=== PATIENT | female | born 1935 | race Caucasian/White ===

== ENCOUNTER 2024-03-15 16:30 | Emergency (ER) | payer OTHER, SELFPAY ==
[2024-03-15 16:39] VITALS: BP 128/60
[2024-03-15 17:00] VITALS: BP 118/48
[2024-03-15 17:06] LABS: % Basophils 0.2 % (0-2); % Eosinophils 1.1 % (0-6); % Immature Granulocytes 0.7 % (0-0.5); % Lymphocytes 28.8 % (20.5-51.1); % Monocytes 8.4 % (1.7-9.3); % Neutrophils 60.8 % (42.2-75.2); Absolute Eosinophils 0.1 10^3/uL (0-0.7); Absolute Lymphocytes 1.6 10^3/uL (1.2-3.4); Absolute Monocytes 0.5 10^3/uL (0.1-0.6); Absolute Neutrophils 3.3 10^3/uL (1.4-6.5); Hemoglobin 9.6 g/dL (12.0-16.0); Mean Corp Hgb Conc. 33.1 g/dL (33.0-37.0); Mean Corpuscular Hgb 29.8 pg (27.0-31.0); Mean Corpuscular Volume 90.1 fL (81.0-99.0); Mean Platelet Volume 9.3 fL (7.4-10.4); Nucleated Red Blood Cells % 0 %; Platelet Count 214 10^3/uL (130-400); Red Blood Cell Count 3.22 10^6/uL (4.20-5.40); Red Cell Dist. Width 13.8 % (11.5-14.5); White Blood Cell Count 5.5 10^3/uL (4.8-10.8)
[2024-03-15 17:21] LABS: ALT (SGPT) 14 U/L (0-35); AST (SGOT) 21 U/L (14-36); Albumin 3.9 g/dl (3.5-5.0); Alkaline Phosphatase 62 U/L (38-126); Blood Urea Nitrogen 28 mg/dl (7-17); Calcium 9.5 mg/dl (8.4-10.2); Carbon Dioxide 20 mmol/L (22-30); Chloride 107 mmol/L (98-107); Glucose 185 mg/dl (70-99); Potassium 4.9 mmol/L (3.5-5.1); Sodium 137 mmol/L (135-145); Total Bilirubin 0.4 mg/dl (0.2-1.3); eGFR 54.19
[2024-03-15 17:33] LABS: Troponin I < 0.012 ng/ml
[2024-03-15 18:00] VITALS: BP 151/57
[2024-03-15 19:08] VITALS: BP 157/55
--- NOTE | 2024-03-15 19:10 | ED.GENMED ---
History of Present Illness
General
Chief Complaint: Fainting Sensation
Source: patient
Exam Limitations: none
Time Seen by Provider: 03/15/24 16:36
Nursing documentation reviewed up to this point in time: agreed with
History of Present Illness
History of Present Illness:
Patient to ED after near syncopal event. According to daughter, patient typically gets OOB around 3PM. SHe took her medication and then went to use bathroom. Daughter states when she came out of bathhroom when she came out of bathroom she was
week. Daughter sat her in a chair and then helped her to floor. No LOC> Patient denies any CP/pressure. Brought to ED via EMS for eval. SHe is now symptom free. Daughters at bedside
Past History
Past History
ED Past Medical History: HTN, Hypercholesterolemia, NIDDM, Psychiatric (anxiety) and Other (TIA)
ED Past Surgical History: Gynecological
Social History
Tobacco: Non-smoker
Alcohol: None
Drug: None
Personal: Single
Living: with family
Review of Systems
Review of Systems
Allergies reviewed?: Yes
All Other Systems: ROS reviewed and negative except as documented in HPI and ROS
Constitutional: Reports no symptoms
EENT: Reports no symptoms
Respiratory: Reports no symptoms
Cardiac: Reports syncope (near syncope)
ABD/GI: Reports no symptoms
: Reports no symptoms
Musculoskeletal: Reports no symptoms
Skin: Reports no symptoms
Neurological: Reports no symptoms
Psychiatric: Reports no symptoms
Phy Exam
General Physical Exam
General Presentation: well appearing and no apparent distress
General age: appears stated age
General Skin: warm and dry
General Habitus: normal
General Mental: alert
Cardiovascular Exam
Cardiovascular Exam: regular rate/rhythm and no edema
Pulmonary Exam
Pulmonary Exam: lungs clear and no respiratory distress
Gastrointestinal Exam
Gastrointestinal Exam: normal bowel sounds, non tender, soft, no organomegaly and non distended
Musculoskeletal Exam
Musculoskeletal Exam: full ROM and neuro vasc intact
Skin Exam
Skin Exam: normal color, warm/dry and no rash
Psychiatric Exam
Psychiatric Exam: normal mood/affect
Course
Orders/Labs/Results
Orders:
Orders
03/15/24 16:34
Electrocardiogram (*1) Urgent
Reason for Study: Syncope
EKG- Treatment ONCE
03/15/24 16:41
CMP [Comprehensive Metabolic Panel] Urgent
Complete Blood Count/With Diff Urgent
Troponin I Urgent
03/15/24 17:33
CT Head W/o Iv Contrast Urgent
Comment:
Reason For Exam: near syncope
03/15/24 19:08
Urinalysis Reflex To Culture Urgent
Date Specimen was Collected: 03/15/24
Time Specimen was Collected: 19:07
Abnormal Lab Results
03/15/24 03/15/24
16:41 19:08
RBC 3.22 L 10^6/uL
(4.20-5.40)
Hgb 9.6 L g/dL
(12.0-16.0)
Hct 29.0 L %
(37.0-47.0)
Immature Gran % 0.7 H %
(0-0.5)
Carbon Dioxide 20 L mmol/L
(22-30)
BUN 28 H mg/dl
(7-17)
Glucose 185 H mg/dl
(70-99)
Total Protein 6.0 L g/dl
(6.3-8.2)
Urine Glucose 3+ A
(Negative)
03/15/24 16:41
03/15/24 16:41
Vital Signs
Initial and Last Documented VS:
Initial Vital Signs
Temp
98.2 F
03/15/24 16:33
Last Documented Vital Signs
Temp Pulse Resp BP Pulse Ox
98.2 F 64 18 157/55 98
03/15/24 16:33 03/15/24 19:08 03/15/24 19:08 03/15/24 19:08 03/15/24 19:08
*Radiology
Radiology exam reviewed: radiology read reviewed
*Pulse Oximetry
Patient hypoxic: no
*Critical Care Note
Total Time (30-74mins, 75-104mins- exclusive of procedures): Not Applicable
Update Note
Update Note:
Near syncopal event after BM today. No head injury. LAbs reviewed, CT stable. WIll discyharge home with family. Given instructions on s/s to return to ED and she is agreeable to plan.
ED Attending Note
-
Portions of this chart may have been created with voice recognition software.� Occasional wrong word or��sound alike� substitutions may have occurred due to the inherent limitations of voice recognition software.
Discharge Plan
Departure
Patient Disposition: Home (Routine Discharge)
Date of Disposition: 03/15/24
Time of Disposition: 19:40
Patient with high blood pressure during this ER visit?: No
Condition: Good
Covid-19: Not Applicable
Discharge Problem:
Near syncope
Instructions: Vasovagal Response (DC), Near Fainting (DC)
Prescriptions:
No Action
coenzyme Q10 60 MG capsule
1 mg PO DAILY
Patient Comments:
takes unknown amount on friday, , and friday
lorazepam 0.5 MG tablet
0.5 mg PO PRN PRN (Reason: insomnia )
amlodipine 10 MG tablet
10 mg PO DAILY
labetalol 100 MG tablet
200 mg PO BID
sertraline 50 MG tablet
50 mg PO DAILY
cholecalciferol (vitamin D3) [D3 DOTS] 2,000 UNIT tablet
2,000 unit PO BID
Jardiance 10 MG tablet
10 mg PO DAILY
clopidogrel 75 MG tablet
75 mg PO DAILY Qty: 30 0RF
rosuvastatin 20 MG tablet
20 mg PO QPM Qty: 30 0RF
metformin 500 MG tablet
500 mg PO BID Qty: 60 0RF
irbesartan 150 MG tablet
150 mg PO BID
Referrals:
Jenna Underwood DO [Family Provider] - Tomorrow
Activity Restrictions/Additional Instructions:
Return to the emergency department immediately for any changes in/worsening of your symptoms.
Interventions
Interventions:
*Risk Screen - Suicide Last Done: 03/15/24 16:36
*General Assessment Last Done: 03/15/24 16:36
*Neglect/Abuse Screening Last Done: 03/15/24 16:36
ED- Fall Risk Assessment Last Done: 03/15/24 16:39
ED- Cardiac Assessment Last Done: 03/15/24 16:39
ED- Neurological Assessment Last Done: 03/15/24 16:39
Discharge Date and Time
Print Language: FRENCH
[2024-03-15 19:32] LABS: Urine Albumin Negative (Neg - Trace); Urine Bilirubin Negative (Negative); Urine Character Clear (Clear); Urine Color Yellow; Urine Glucose 3+ (Negative); Urine Ketone Negative (Negative); Urine Leukocyte Negative (Negative); Urine Nitrite Negative (Negative); Urine Occult Blood Negative (Negative); Urine Urobilinogen Negative (Neg - 1+)
== END 2024-03-15 19:50 | disposition home or self-care (01) ==
LOC: EMR 16:30
PROVIDERS: Nurse Practitioner; EMERGENCY PHYSICIAN Student in an Organized Health Care Education/Training Program; FAMILY PHYSICIAN Family Medicine
DX: R55 Syncope and collapse (principal); I10 Essential (primary) hypertension; E11.9 Type 2 diabetes mellitus without complications; E78.00 Pure hypercholesterolemia, unspecified; F41.9 Anxiety disorder, unspecified; Z86.73 Personal history of transient ischemic attack (TIA), and cerebral infarction without residual deficits; Z79.84 Long term (current) use of oral hypoglycemic drugs; Z88.2 Allergy status to sulfonamides
CPT/HCPCS: 99284; 70450; 80053; 81003; 84484; 85025; 93005

== ENCOUNTER 2024-03-26 21:09 | Inpatient (IN) | payer OTHER, SELFPAY ==
[2024-03-26] VITALS (17 sets, daily range): BP systolic 107–157; BP diastolic 40–69; PULSE 63–83; BMI 25.0; BMI 24.0
--- NOTE | 2024-03-26 17:29 | ED.GENMED ---
History of Present Illness
<Irasema Russ PA-C - Last Filed: 03/27/24 00:13>
General
Chief Complaint: Blood Pressure Problem
Source: patient and family (Daughter at bedside)
Exam Limitations: none
Time Seen by Provider: 03/26/24 17:14
Nursing documentation reviewed up to this point in time: agreed with
History of Present Illness
History of Present Illness:
Patient is an 88-year-old female presenting to the emergency department with daughter for concerns of asymptomatic low blood pressure readings at home. Patient's daughter reports regular checking of blood pressure at home in the afternoon. Today
they are checking blood pressure he was found to be in the 90s/40s�50s. They spoke with the primary care provider who recommended patient be seen in the emergency department. Patient was asymptomatic at the time of low blood pressure readings.
Patient specifically denies any fever, chills, dizziness/lightheadedness, numbness/tingling, chest pain or shortness of breath. No recent syncopal or near syncopal events since discharge from hospital last week.
Patient's daughter does state that her mom does not stay well-hydrated throughout the day.
Patient was seen in the emergency department for a near syncopal event about a week ago. They were instructed to cut the irbesartan in half which they have done that for the past week. No other recent medication changes.
Patient does have a history of iron deficiency anemia. She takes iron supplements no hematochezia or melena
Past History
<Irasema Russ PA-C - Last Filed: 03/27/24 00:13>
Past History
ED Past Medical History: HTN, Hypercholesterolemia, NIDDM, Psychiatric (anxiety) and Other (TIA)
ED Past Surgical History: Gynecological
Social History
Tobacco: Non-smoker
Alcohol: None
Drug: None
Personal: Single
Living: with family
Review of Systems
<Irasema Russ PA-C - Last Filed: 03/27/24 00:13>
Review of Systems
Allergies reviewed?: Yes
All Other Systems: ROS reviewed and negative except as documented in HPI and ROS
Phy Exam
<Irasema Russ PA-C - Last Filed: 03/27/24 00:13>
Physical Exam
Physical Exam:
Vitals: Patient's vital signs are stable. Normotensive, afebrile
General: Patient is very well appearing, no acute distress. Nontoxic appearing
Skin: Warm and dry, no rashes or lesions
Head: Normocephalic, atraumatic
Eyes: Sclera nonicteric. EOMs intact. No nystagmus.
Throat: Protecting airway
Neck: Normal ROM, no cervical spine tenderness, no meningismus
Cardiac: Regular rate and rhythm, no murmurs.
Pulm: Normal respiratory effort, no wheezes, rales, rhonchi heard on exam.
Abdomen: Abdomen soft and nontender.
Extremities: No evidence of cyanosis or edema. Great distal pulses
Neuro: Grossly intact.
Psychiatric: Normal affect.
Course
<Irasema Russ PA-C - Last Filed: 03/27/24 00:13>
Orders/Labs/Results
Orders:
Orders
03/26/24 Dinner
Regular
At Your Request: Limited Participation
Does patient need a safe tray?: No
03/26/24 17:46
Orthostatic VS- Treatment ONCE
03/26/24 18:30
0.9% Sodium Chloride 1000 ml [Nss] 1,000 ml IV BOLUS
03/26/24 18:45
Complete Blood Count/With Diff Urgent
Comprehensive Metabolic Panel Urgent
03/26/24 19:51
Electrocardiogram (*1) Urgent
Reason for Study: Other
Other Reason for Exam: hyperkalemia
EKG- Treatment ONCE
Potassium Urgent
03/26/24 20:12
Calcium Gluconate 1,000 mg IV NOW STA
Dextrose 50%-Water [Dextrose 50% Syringe] 12.5 grams IV [id number] PRN
Dextrose 50%-Water [Dextrose 50% Syringe] 25 grams IV NOW STA
Insulin Human Regular [Novolin R] 10 units IV NOW STA
Sodium Bicarbonate 50 meq IV NOW STA
03/26/24 20:14
Bedside Glucose- Treatment ONCE
03/26/24 20:37
Admit/Transfer Patient As Directed
Co-Sign Provider:
Level of Care: Inpatient admission
Assign to:: Telemetry
Physician / Group: stacey
Diagnosis: hyperkalemia, hypotension
Reason for Telemetry: Arrhythmia
Date to Stop Telemetry: 03/29/24
Time to Stop Telemetry: 11:00
Reason for Hospitalization: hyperkalemia, hypotension
Expected length of stay greater than two midnights?: Yes
ELOS- Estimated Length of Stay in days: 2
I certify the patient meets the requirements for IP care: Yes
Code Status As Directed
Resuscitation Status: Full Code
PRN Pain Medication Management As Directed
May give lesser potent ordered pain med per pt: Yes
preference::
Protocol:: Medication orders for pain may be administered in a
manner that supports deferring to patient preference
when the pt is:
- Requesting an ordered lesser potent pain medication.
Least to most potent pain medications are defined
as: acetaminophen < NSAID < tramadol < opioids
(morphine, oxycodone, hydromorphone).
- Requesting a lesser dose of the same medication IF
ORDERED.
- Requesting a less intrusive route of administration
if both routes are prescribed by the provider (PO <
IV).
03/26/24 21:00
Flush (0.9% Sodium Chloride) [Flush (Nss)] See Dose Instructions IV PER PROTOCOL
03/26/24 21:51
0.9% Sodium Chloride 1000 ml [Nss] 1,000 ml IV 80 mls/hr
03/26/24 21:51
Activity As Directed
Activity Level: As Tolerated
Vital Signs As Directed
Frequency: Per unit guidelines
DX Deep Vein Thrombosis Video Routine
03/26/24 22:44
Potassium Urgent
Comment: draw 2 hours after regular insulin IV administration
03/27/24 06:00
Complete Blood Count/With Diff IN AM
Comprehensive Metabolic Panel IN AM
03/27/24 08:00
Cholecalciferol (Vitamin D3) [VITAMIN D3 (cholecalciferol)] 50 mcg PO BID
Clopidogrel Bisulfate [Plavix] 75 mg PO DAILY
Heparin 5,000 units SC Q12
METFORMIN HCl [Glucophage] 1,000 mg PO BID AT 0800,1700
Sertraline HCl [Zoloft] 50 mg PO DAILY
turmeric 400 mg PO DAILY
03/27/24 18:00
Rosuvastatin Calcium [Crestor] 20 mg PO QPM
coenzyme Q10 [Co Q-10] 100 mg PO QPM
03/29/24 11:00
DC Protocol for Telemetry ONCE
Abnormal Lab Results
03/26/24 03/26/24
18:45 19:51
RBC 3.24 L 10^6/uL
(4.20-5.40)
Hgb 9.7 L g/dL
(12.0-16.0)
Hct 29.8 L %
(37.0-47.0)
MCHC 32.6 L g/dL
(33.0-37.0)
Potassium 5.5 H mmol/L 5.8 H mmol/L
(3.5-5.1) (3.5-5.1)
BUN 27 H mg/dl
(7-17)
Glucose 127 H mg/dl
(70-99)
03/26/24 18:45
03/26/24 19:51
Vital Signs
Initial and Last Documented VS:
Initial Vital Signs
Temp Pulse Resp BP Pulse Ox
98.2 F 68 20 138/64 98
03/26/24 16:28 03/26/24 16:28 03/26/24 16:28 03/26/24 16:28 03/26/24 16:28
Last Documented Vital Signs
Temp Pulse Resp BP Pulse Ox
98 F 62 16 135/54 96
03/26/24 23:47 03/26/24 23:47 03/26/24 23:47 03/26/24 23:47 03/26/24 23:47
<Jen Tong MD - Last Filed: 03/26/24 19:37>
Orders/Labs/Results
Orders:
Orders
03/26/24 Dinner
Regular
At Your Request: Limited Participation
Does patient need a safe tray?: No
03/26/24 17:46
Orthostatic VS- Treatment ONCE
03/26/24 18:30
0.9% Sodium Chloride 1000 ml [Nss] 1,000 ml IV BOLUS
03/26/24 18:45
Complete Blood Count/With Diff Urgent
Comprehensive Metabolic Panel Urgent
03/26/24 19:51
Electrocardiogram (*1) Urgent
Reason for Study: Other
Other Reason for Exam: hyperkalemia
EKG- Treatment ONCE
Potassium Urgent
03/26/24 20:12
Calcium Gluconate 1,000 mg IV NOW STA
Dextrose 50%-Water [Dextrose 50% Syringe] 12.5 grams IV [id number] PRN
Dextrose 50%-Water [Dextrose 50% Syringe] 25 grams IV NOW STA
Insulin Human Regular [Novolin R] 10 units IV NOW STA
Sodium Bicarbonate 50 meq IV NOW STA
03/26/24 20:14
Bedside Glucose- Treatment ONCE
03/26/24 20:37
Admit/Transfer Patient As Directed
Co-Sign Provider:
Level of Care: Inpatient admission
Assign to:: Telemetry
Physician / Group: stacey
Diagnosis: hyperkalemia, hypotension
Reason for Telemetry: Arrhythmia
Date to Stop Telemetry: 03/29/24
Time to Stop Telemetry: 11:00
Reason for Hospitalization: hyperkalemia, hypotension
Expected length of stay greater than two midnights?: Yes
ELOS- Estimated Length of Stay in days: 2
I certify the patient meets the requirements for IP care: Yes
Code Status As Directed
Resuscitation Status: Full Code
PRN Pain Medication Management As Directed
May give lesser potent ordered pain med per pt: Yes
preference::
Protocol:: Medication orders for pain may be administered in a
manner that supports deferring to patient preference
when the pt is:
- Requesting an ordered lesser potent pain medication.
Least to most potent pain medications are defined
as: acetaminophen < NSAID < tramadol < opioids
(morphine, oxycodone, hydromorphone).
- Requesting a lesser dose of the same medication IF
ORDERED.
- Requesting a less intrusive route of administration
if both routes are prescribed by the provider (PO <
IV).
03/26/24 21:00
Flush (0.9% Sodium Chloride) [Flush (Nss)] See Dose Instructions IV PER PROTOCOL
03/26/24 21:51
0.9% Sodium Chloride 1000 ml [Nss] 1,000 ml IV 80 mls/hr
03/26/24 21:51
Activity As Directed
Activity Level: As Tolerated
Vital Signs As Directed
Frequency: Per unit guidelines
DX Deep Vein Thrombosis Video Routine
03/26/24 22:44
Potassium Urgent
Comment: draw 2 hours after regular insulin IV administration
03/27/24 06:00
Complete Blood Count/With Diff IN AM
Comprehensive Metabolic Panel IN AM
03/27/24 08:00
Cholecalciferol (Vitamin D3) [VITAMIN D3 (cholecalciferol)] 50 mcg PO BID
Clopidogrel Bisulfate [Plavix] 75 mg PO DAILY
Heparin 5,000 units SC Q12
METFORMIN HCl [Glucophage] 1,000 mg PO BID AT 0800,1700
Sertraline HCl [Zoloft] 50 mg PO DAILY
turmeric 400 mg PO DAILY
03/27/24 18:00
Rosuvastatin Calcium [Crestor] 20 mg PO QPM
coenzyme Q10 [Co Q-10] 100 mg PO QPM
03/29/24 11:00
DC Protocol for Telemetry ONCE
Abnormal Lab Results
03/26/24 03/26/24
18:45 19:51
RBC 3.24 L 10^6/uL
(4.20-5.40)
Hgb 9.7 L g/dL
(12.0-16.0)
Hct 29.8 L %
(37.0-47.0)
MCHC 32.6 L g/dL
(33.0-37.0)
Potassium 5.5 H mmol/L 5.8 H mmol/L
(3.5-5.1) (3.5-5.1)
BUN 27 H mg/dl
(7-17)
Glucose 127 H mg/dl
(70-99)
03/26/24 18:45
03/26/24 19:51
Vital Signs
Initial and Last Documented VS:
Initial Vital Signs
Temp Pulse Resp BP Pulse Ox
98.2 F 68 20 138/64 98
03/26/24 16:28 03/26/24 16:28 03/26/24 16:28 03/26/24 16:28 03/26/24 16:28
Last Documented Vital Signs
Temp Pulse Resp BP Pulse Ox
98 F 62 16 135/54 96
03/26/24 23:47 03/26/24 23:47 03/26/24 23:47 03/26/24 23:47 03/26/24 23:47
<Irasema Russ PA-C - Last Filed: 03/27/24 00:13>
MDM/Problems Addressed
Differential Diagnosis Includes:
Not limited to: Dehydration, viral illness, or the hypotension, medication side effect
MDM/Problems Addressed:
88-year-old female presenting for evaluation of asymptomatic hypotension at home with readings in 90s/60s. Patient normotensive here with BPs ranging from 113/54 to 140/59. Patient asymptomatic with no current complaints. Otherwise vital signs
stable. Patient very well-appearing, in no apparent distress. Heart regular rate and rhythm. Lungs clear bilaterally. Patient has no lower extremity edema or cyanosis. She is perfusing well with great distal pulses. No focal neurologic
deficits noted. Did obtain orthostatic vital signs which show some degree of orthostatic hypotension. Will give liter fluids and check basic labs. Will check EKG.
Labs noted. Anemia with hemoglobin of 9.7 which appears chronic and stable. Potassium was found to be elevated at 5.5 although no acute EKG changes noted. Will repeat potassium. Patient otherwise appears
Repeat potassium increased to 5.8. Given increasing hyperkalemia�will admit for further monitoring and treatment. Did give him gluconate, insulin, sodium bicarb while in emergency department.
Patient was recently seen in emergency department approximately 1 week ago for near syncopal event. Following discharge her irbesartan was cut in half. Patient is on multiple antihypertensive medications including amlodipine, irbesartan,
labetalol. Suspect medications versus dehydration likely contributed to possible hypotension at home. Will admit to hospitalist for further evaluation and management of hyperkalemia. Patient accepted to hospital service in stable condition.
Patient seen with attending physician
Chronic conditions affecting care:
Hypertension
Acute Exacerbation and/or Progression of Chronic Illness:
N/A
<Irasema Russ PA-C - Last Filed: 03/27/24 00:13>
*Pulse Oximetry
Patient hypoxic: no
*EKG
Interpreted by ED Provider?: Yes
Interpretation: abnormal
Comparison EKG: no changes
Heart Rate: 58
Rate: bradycardiac
Rhythm: sinus
[place]: normal axis
Interval: first degree heart block
QRS Pattern: normal QRS
Ischemia: no ischemia
*Edging Machine Catcher Interpretation
Rate: Edging Machine Catcher- N/A
*Critical Care Note
Total Time (30-74mins, 75-104mins- exclusive of procedures): Not Applicable
<Irasema Russ PA-C - Last Filed: 03/27/24 00:13>
Patient Management
Discussion with other providers: Hospitalist
Escalation/DeEscalation of care consider admission/obs:
Admit for further management of hyperkalemia
ED Attending Note
<Irasema Russ PA-C - Last Filed: 03/27/24 00:13>
-
Portions of this chart may have been created with voice recognition software.� Occasional wrong word or��sound alike� substitutions may have occurred due to the inherent limitations of voice recognition software.
<Jen Tong MD - Last Filed: 03/26/24 19:37>
ED Attending Note
Patient seen and examined by attending physician: Yes
I performed the substantive portion of visit, reviewed & personally made and approve the management plan that is documented in note by myself or TANNER.: Yes
ED Attending Note:
Patient appears well and comfortable. Her heart sounds regular lungs are clear. Abdomen is soft and nontender. She denies any shortness of breath and chest pain. Transient hypotension may be due to some degree of dehydration. She has not had a
fever, and given she looks so well, it is doubtful she has sepsis. Blood pressure has been normal in the ED.
Discharge Plan
Departure
Patient Disposition: Admit
Date of Disposition: 03/26/24
Time of Disposition: 20:18
Presentation/result/management discussed w/ accepting MD/DO: Hospitalist
Discharge Problem:
Acute hyperkalemia
Interventions
Interventions:
*Risk Screen - Suicide Last Done: 03/26/24 16:28
*General Assessment Last Done: 03/26/24 16:28
*Neglect/Abuse Screening Last Done: 03/26/24 16:28
ED- Fall Risk Assessment Last Done: 03/26/24 17:44
*ED COVID-19 Vaccine History Last Done: 03/26/24 22:09
*Nursing Disposition Last Done: 03/26/24 21:37
ED- Cardiac Assessment Last Done: 03/26/24 17:44
ED- Neurological Assessment Last Done: 03/26/24 17:44
ED- Pulmonary Assessment Last Done: 03/26/24 17:44
Discharge Date and Time
Discharge Date/Time: 03/26/24 21:45
[2024-03-26] MEDS: NSS 1000 IV ×2 (18:48→22:03)
[2024-03-26 18:55] LABS: % Basophils 0.3 % (0-2); % Eosinophils 1.4 % (0-6); % Immature Granulocytes 0.3 % (0-0.5); % Lymphocytes 26.4 % (20.5-51.1); % Monocytes 9.3 % (1.7-9.3); % Neutrophils 62.3 % (42.2-75.2); Absolute Eosinophils 0.1 10^3/uL (0-0.7); Absolute Lymphocytes 1.7 10^3/uL (1.2-3.4); Absolute Monocytes 0.6 10^3/uL (0.1-0.6); Absolute Neutrophils 3.9 10^3/uL (1.4-6.5); Hematocrit 29.8 % (37.0-47.0); Hemoglobin 9.7 g/dL (12.0-16.0); Mean Corp Hgb Conc. 32.6 g/dL (33.0-37.0); Mean Corpuscular Hgb 29.9 pg (27.0-31.0); Mean Platelet Volume 8.8 fL (7.4-10.4); Nucleated Red Blood Cells % 0 %; Platelet Count 243 10^3/uL (130-400); Red Blood Cell Count 3.24 10^6/uL (4.20-5.40); Red Cell Dist. Width 14.3 % (11.5-14.5); White Blood Cell Count 6.2 10^3/uL (4.8-10.8)
[2024-03-26 19:26] LABS: ALT (SGPT) 16 U/L (0-35); AST (SGOT) 24 U/L (14-36); Albumin 4.4 g/dl (3.5-5.0); Alkaline Phosphatase 67 U/L (38-126); Blood Urea Nitrogen 27 mg/dl (7-17); Calcium 9.6 mg/dl (8.4-10.2); Carbon Dioxide 25 mmol/L (22-30); Chloride 101 mmol/L (98-107); Estimated Creatinine Clearance 31 ml/min; Glucose 127 mg/dl (70-99); Potassium 5.5 mmol/L (3.5-5.1); Sodium 140 mmol/L (135-145); Total Bilirubin 0.4 mg/dl (0.2-1.3); Total Protein 6.6 g/dl (6.3-8.2); eGFR 54.19
[2024-03-26 20:06] LABS: Potassium 5.8 mmol/L (3.5-5.1)
--- NOTE | 2024-03-26 20:40 | HPS.HSE ---
Family Physician
-
Family Physician: Jenna Underwood
Chief Complaint
-
hypotension
History of Present Illness
88-year-old female past medical history of CVA, bilateral internal carotid artery stenosis, possible normal pressure hydrocephalus, hypertension, diabetes, cognitive impairment, hyperlipidemia, vitamin D deficiency, iron deficiency, presenting with
daughter for concerns of asymptomatic low blood pressure readings at home. Daughter is checking blood pressure daily in the afternoon. Today they were checking blood pressure and it was in 90s systolic, 40 to 50 diastolic. Spoke with primary care
physician who recommend she come to the emergency room. Patient did not have any symptoms at that time. She denies any fevers or chills, dizziness, lightheadedness, numbness or tingling, chest pain or shortness of breath. Patient denies any
syncopal episodes.
Patient had recently been losing weight due to lack of appetite. He has possibly lost 10 pounds in the past 2 months.
Patient was seen in the emergency room 11 days ago for near syncopal episode after bowel movement. Patient was discharged home for presumably vagal episode. Irbesartan dose was decreased at that time.
No smoking or alcohol use.
Medical History
Past Medical History
Past Medical History: Reports Other (CVA, bilateral internal carotid artery stenosis, possible normal pressure hydrocephalus, hypertension, diabetes, cognitive impairment, hyperlipidemia, vitamin D deficiency, iron deficiency,)
Past Surgical History: Reports Gynocological
Social History
Tobacco: Non-smoker
Alcohol: None
Drug: None
Family History
Family History: Not pertinent
Allergies / Home Medications
Allergies reflects when Allergies were last updated in [facility].
Home Medications with original date entered in [facility]
Allergy/Medication List:
Allergies
Allergy/AdvReac Type Severity Reaction Status Date / Time
Sulfa (Sulfonamide Allergy Unknown Verified 03/26/24 16:28
Antibiotics)
Home Medications
empagliflozin 10 mg tablet (Jardiance) 10 mg PO DAILY 08/14/19
sertraline 50 mg tablet 50 mg PO DAILY 08/14/19
clopidogrel 75 mg tablet 75 mg PO DAILY #30 tabs 08/17/19
rosuvastatin 20 mg tablet 20 mg PO QPM #30 tabs 08/17/19
amlodipine 5 mg tablet 5 mg PO DAILY 03/26/24
cholecalciferol (vitamin D3) 50 mcg (2,000 unit) tablet 50 mcg PO BID 03/26/24
coenzyme Q10 100 mg capsule (Co Q-10) 100 mg PO QPM 03/26/24
irbesartan 300 mg tablet 150 mg PO DAILY 03/26/24
labetalol 200 mg tablet 200 mg PO BID 03/26/24
metformin 1,000 mg tablet 1,000 mg PO BID 03/26/24
turmeric 400 mg capsule 400 mg PO DAILY 03/26/24
Review of Systems
-
History Source: Patient
A 12 point ROS was completed and negative except as noted: Yes
Constitutional: Reports No Symptoms
EENT: Reports No Symptoms
Respiratory: Reports No Symptoms
Cardiac: Reports No Symptoms
Abdomen/GI: Reports No Symptoms
: Reports No Symptoms
Musculoskeletal: Reports No Symptoms
Skin: Reports No Symptoms
Neurological: Reports No Symptoms
Endocrine: Reports No Symptoms
Hematologic/Lymphatic: Reports No Symptoms
Psych: Reports No Symptoms
Physical Exam
Vital Signs
Vital Signs
Temp Pulse Resp BP Pulse Ox
98.2 F 68 20 111/54 97
03/26/24 16:28 03/26/24 16:28 03/26/24 16:28 03/26/24 19:00 03/26/24 19:15
Physical Exam
General: Well Developed, Well Nourished and No Apparent Distress
HEENT: NormoCephalic, Moist mucous membranes and Atraumatic
Respiratory: Clear
Cardiac: S1/S2 and Regular Rhythm; No Murmur or Rub
GI: Soft, Non Tender, Non Distended and Normal Bowel Sounds; No Organomegaly
Rectal: Deferred by Provider
Musculoskeletal: No Clubbing, No Cyanosis and No Edema
Skin: No Rash
Neuro: Nonfocal/grossly intact
Laboratory Results
-
03/26/24 18:45
Laboratory Results
Total Bilirubin 0.4 mg/dl (0.2-1.3) 03/26/24 18:45
AST 24 U/L (14-36) 03/26/24 18:45
ALT 16 U/L (0-35) 03/26/24 18:45
Alkaline Phosphatase 67 U/L (38-126) 03/26/24 18:45
Data Reviewed
-
Lab Data: Labs Reviewed by me
Old Records: Reviewed
Impression/Plan
-
IMPRESSION:
PLAN:
# Hypotension/hyperkalemia secondary to irbesartan/overtreatment with antihypertensives due to recent weight loss
-EKG shows sinus bradycardia with first-degree AV block, peaking of T waves
-Given insulin/dextrose, sodium bicarbonate, calcium gluconate because potassium vasu to 5.5-5.8
-IV fluids given with improvement in blood pressure
-Hold irbesartan permanently
-Hold amlodipine, labetalol
-Hold Jardiance
Essential hypertension
-Hold amlodipine, irbesartan
History of CVA
-Continue Plavix
Bilateral internal carotid artery stenosis
Possible normal pressure hydrocephalus
Type 2 diabetes
-Hold Jardiance
-Continue metformin
Cognitive impairment
Hyperlipidemia
-Continue statin
Chronic anemia
Iron deficiency
-Hemoglobin at baseline 9.7
Vitamin D deficiency
Anxiety/depression
-Continue sertraline
-Continue Ativan
Full code
DVT prophylaxis�heparin
Regular diet
[2024-03-26] MEDS: SODIUM BICARBONATE 50 MEQ IV (21:00)
[2024-03-26] MEDS: DEXTROSE 50% SYRINGE 25 GRAMS IV (21:05)
[2024-03-26] MEDS: CALCIUM GLUCONATE 1000 MG IV (21:08)
[2024-03-26 21:18] LABS: Glucose - Point of Care 271 mg/dl (70-99)
[2024-03-26] MEDS: NOVOLIN R 10 UNITS IV (21:18)
[2024-03-26] MEDS: FLUSH (NSS) 1 FLUSH IV (21:21)
--- NOTE | 2024-03-26 22:15 | PTCARENOTE ---
Received patient from ED via stretcher. Patient ambulated from stretcher to bed with minimal assistance. AAOx2, no current complaints of pain. Oriented patient to room and placed call flores within reach.
[2024-03-27 00:31] LABS: Potassium 4.9 mmol/L (3.5-5.1)
[2024-03-27 03:32] VITALS: BP 134/57
[2024-03-27 07:00] VITALS: BP 158/78
[2024-03-27 08:29] LABS: ALT (SGPT) 13 U/L (0-35); AST (SGOT) 22 U/L (14-36); Albumin 3.9 g/dl (3.5-5.0); Alkaline Phosphatase 62 U/L (38-126); Blood Urea Nitrogen 19 mg/dl (7-17); Calcium 9.6 mg/dl (8.4-10.2); Carbon Dioxide 24 mmol/L (22-30); Chloride 105 mmol/L (98-107); Estimated Creatinine Clearance 40 ml/min; Glucose 109 mg/dl (70-99); Potassium 4.6 mmol/L (3.5-5.1); Sodium 141 mmol/L (135-145); Total Bilirubin 0.5 mg/dl (0.2-1.3); Total Protein 5.9 g/dl (6.3-8.2); eGFR > 60.00
[2024-03-27 08:31] LABS: % Basophils 0.3 % (0-2); % Eosinophils 1.7 % (0-6); % Immature Granulocytes 0.3 % (0-0.5); % Lymphocytes 28.2 % (20.5-51.1); % Monocytes 9.2 % (1.7-9.3); % Neutrophils 60.3 % (42.2-75.2); Absolute Eosinophils 0.1 10^3/uL (0-0.7); Absolute Lymphocytes 1.6 10^3/uL (1.2-3.4); Absolute Monocytes 0.5 10^3/uL (0.1-0.6); Absolute Neutrophils 3.5 10^3/uL (1.4-6.5); Hemoglobin 9.4 g/dL (12.0-16.0); Mean Corp Hgb Conc. 32.4 g/dL (33.0-37.0); Mean Corpuscular Hgb 30.1 pg (27.0-31.0); Mean Corpuscular Volume 92.9 fL (81.0-99.0); Mean Platelet Volume 9.4 fL (7.4-10.4); Nucleated Red Blood Cells % 0 %; Platelet Count 237 10^3/uL (130-400); Red Blood Cell Count 3.12 10^6/uL (4.20-5.40); White Blood Cell Count 5.7 10^3/uL (4.8-10.8)
--- NOTE | 2024-03-27 09:01 | W.PN.HOSP.TC ---
Addendum entered and electronically signed by Franck Brewer MD 03/27/24 20:41:
Attending Addendum:
I saw and evaluated the patient. I reviewed the resident�s note and agree with findings and plan as documented in the resident�s note. Sub: came to ED due to PCP request of hypotension. has been completely asymptomatic. Wants to go home. Seen with
daughters present. Full 12 point ROS reviewed and negative except as documented Exam: Vitals reviewed in chart GEN-NAD heart RRR lungs clear abd soft LE no edema
# Hypotension/hyperkalemia secondary to irbesartan/overtreatment with antihypertensives
-resolved k 4.6
-Given insulin/dextrose, sodium bicarbonate, calcium gluconate overnight
-IV fluids given with improvement in blood pressure
-DC irbesartan
-restart amlodipine, labetalol
-restart Jardiance
-dc home
# Essential hypertension
- stable
- DC irbesartan
History of CVA
-Continue Plavix
Bilateral internal carotid artery stenosis
Possible normal pressure hydrocephalus
Type 2 diabetes
-contardiance
-Continue metformin
Cognitive impairment
Hyperlipidemia
-Continue statin
Chronic anemia
Iron deficiency
-Hemoglobin at baseline 9.7
Vitamin D deficiency
Anxiety/depression
-Continue sertraline
-Continue Ativan
Full code
DVT prophylaxis�heparin
Regular diet
Dispo DC home
Time spent coordinating care, DC planning, review of DC plan of care with resident, transition of care, review of records, med rec/scripts sent electronically, consults, notes, d/w consultants, nursing, family, and CM� 35 mins
Original Note:
Today's Communication/Plan
-
Discharge home
Assessment / Plan
Assessment / Plan
88yo F with PMH HTN, CVA, DM who presented to ED due to home BP readings of 90s/40s. She was asymptomatic and in her usual state of health. In the ED she was found to have hyperkalemia and there was concern for peaking T waves.
Moderate asymptomatic hyperkalemia
- Given insulin/dextrose, sodium bicarbonate, calcium gluconate because potassium vasu to 5.5-5.8
- Home irbesartan was discontinued permanently (of note, outpatient dose recently decreased)
- VSS, asymptomatic, and repeat serum K wnl x2
- Stable for discharge home with regular outpatient follow up
- Discussed with patient and her 2 daughters to stop taking irbesartan at home until she follows up with PCP
- Reviewed standard conditions to measure BP at home with patient and daughters. Recommended they bring home BP cuff to PCP appointment to see if it is accurate compared to office cuff.
Essential hypertension
- BP meds initially held given concern for hypotension prior to admission
- BPs all normal or hypertensive, consistent with her history. No hypotensive BPs or symptoms of hypotension this admission.
- Resume home meds except for irbesartan.
Type 2 diabetes
- POC BG 271 on admission
- Continue home jardiance and metformin
History of CVA- Continue plavix
Bilateral internal carotid artery stenosis
Possible normal pressure hydrocephalus
Cognitive impairment- AOx3
Hyperlipidemia- Continue statin
Chronic anemia, iron deficiency- Hgb 9.4 today, at baseline
Vitamin D deficiency
Anxiety/depression- Continue sertraline, Ativan
Full code
DVT prophylaxis�heparin
Regular diet
Dispo: discharge home today. She lives with her daughter
Anticipated Discharge: Today
Subjective/Interval History
-
Date of Service: March 27, 2024
No acute events overnight. No complaints. She would like to go home. Denies lightheadedness, dizziness, chest pain, palpitations, shortness of breath, nausea, vomiting, diarrhea, constipation, abdominal pain. Last bowel movement was yesterday,
denies black/bloody stools. She is tolerating PO diet and ambulating as tolerated without assistance.
Objective Data
-
Labs:
Laboratory Results
03/27/24 03/27/24
00:02 06:43
WBC 5.7
Hgb 9.4 L
Hct 29.0 L
Plt Count 237
Sodium 141
Potassium 4.9 4.6
Chloride 105
Carbon Dioxide 24
BUN 19 H
Creatinine 0.8
Glucose 109 H
Calcium 9.6
Total Bilirubin 0.5
AST 22
ALT 13
Alkaline Phosphatase 62
Vital Signs:
Vital Signs
Temp Pulse Resp BP Pulse Ox
98.4 F 78 16 158/78 95
03/27/24 07:00 03/27/24 07:00 03/27/24 07:00 03/27/24 07:00 03/27/24 07:00
Review of Systems
-
History Source: Patient
All other systems: Reviewed and negative
Physical Exam
-
General: Well Developed, Well Nourished, No Apparent Distress, Comfortable, Conversant and Other (sitting up in chair eating breakfast)
HEENT: Normocephalic and Atraumatic
Respiratory: Clear to Auscultation and Non Labored Respirations
Cardiac: Regular Rhythm and S1/S2
GI: Soft, Nontender, Nondistended and Normal Bowel Sounds
Musculoskeletal: No Cyanosis, No Edema and Other (distal extremities well perfused)
Skin: Warm and Dry
Neuro: Awake, Alert, Oriented (Person: name and . Place: . Date: Mar 27, unsure on specific year but knows it's ) and Nonfocal/Grossly Intact; Negative Slurred Speech or Facial Droop
Psych: Calm and Intact Judgement/Insight
[2024-03-27] MEDS: PLAVIX 75 MG PO (09:02)
[2024-03-27] MEDS: HEPARIN 5000 UNITS SC (09:02)
[2024-03-27] MEDS: VITAMIN D3 (cholecalciferol) 50 MCG PO (09:02)
[2024-03-27] MEDS: GLUCOPHAGE 1000 MG PO (09:02)
[2024-03-27] MEDS: ZOLOFT 50 MG PO (09:02)
[2024-03-27] MEDS: NSS 1000 IV (10:36)
[2024-03-27 11:22] VITALS: BP 147/64
[2024-03-27 15:46] VITALS: BP 107/70
--- NOTE | 2024-03-27 16:58 | CM ---
ED CM completed IA prior to discharge. Pt returned home with no needs. She was ambulating independently in the hallway, PT screened Amina prior to discharge and did not feel therapy was needed.
--- NOTE | 2024-03-27 18:05 | CM ---
Late entry: Patient was assessed prior to being d/c'd.
CM reviewed patient's chart. Spoke with patient at bedside. CM introduced self and role. Patient's daughter and another family member also at bedside.
PCP: Dr.Suzanne Underwood
Pharmacy: [facility] in [place]
Living situation: Patient lives with her daughter, Jenna. No steps to enter. She does not drive. Her family provides her with transportation.
Finances: Patient denies any social insecurities. She is able to afford her housing, clothing, medications, food, utilities and transportation. She is retired.
DME/Ambulation: Patient ambulates independently. She uses a cane.
Transportation: Daughter will provide transportation once she is discharged.
Agreeable to home health care?: Yes, if needed.
ANTICIPATED DISCHARGE DISPOSITION:
Return to home with daughter, when medically cleared.
CM will continue to follow case and available for further assistance.
--- NOTE | 2024-03-27 20:10 | W.DCSUMMARY ---
Addendum entered and electronically signed by Franck Brewer MD 03/28/24 13:59:
Read, reviewed, and agree. See same day progress note for additional details.
Jovani Brewer MD
Original Note:
Documented by User: Anabelle Liang MD, Resident 03/27/24 23:33
Discharge Summary
Discharge Data
Date of Admission: 03/26/24
Date of Discharge: 03/27/24
-
Pending Results: No
Hospital Course
Discharging Physician : Dr. Liang, Dr. Brewer
Disposition : Home
Primary care physician : Jenna Underwood
Principal Discharge diagnosis : Hyperkalemia (resolved)
Chronic Discharge diagnosis : Hypertension
Hospital Course : Presented to ED for asymptomatic hypotensive BP readings with patient's own cuff at home. In ED, BP normal and incidentally found to have hyperkalemia. Treated with insulin/dextrose, sodium bicarbonate, calcium gluconate, and
serum K normalized. Her home irbesartan was discontinued. She remained stable and asymptomatic throughout hospitalization, and had no hypotensive BPs. On day of discharge, she was in stable condition. She was discharged home.
Important imaging findings : N/A
Procedure findings : N/A
Discharge Plan
-
Patient Disposition: Home (Routine Discharge)
Discharge Diagnosis/Procedures: Hyperkalemia
Condition: Good
Diet: As tolerated and Diabetic, Carb Controlled
Activity: No restrictions and As tolerated
Driving Restrictions: As prior to admission
Bathing Restrictions: None
Instructions: High Blood Pressure (DC), Controlling your blood pressure through lifestyle, Dealing with Low Blood Pressure from the Drugs You Take
Referrals:
Jenna Underwood, DO [Family Provider] - in one to two weeks
Prescriptions:
Continued
sertraline 50 MG tablet
50 mg PO DAILY
Jardiance 10 MG tablet
10 mg PO DAILY
clopidogrel 75 MG tablet
75 mg PO DAILY Qty: 30 0RF
rosuvastatin 20 MG tablet
20 mg PO QPM Qty: 30 0RF
labetalol 200 mg tablet
200 mg PO BID
amlodipine 5 mg tablet
5 mg PO DAILY
metformin 1,000 mg tablet
1,000 mg PO BID
coenzyme Q10 [Co Q-10] 100 mg Capsule
100 mg PO QPM
cholecalciferol (vitamin D3) 50 mcg (2,000 unit) Tablet
50 mcg PO BID
turmeric 400 mg Capsule
400 mg PO DAILY
Discontinued
irbesartan 300 mg tablet
150 mg PO DAILY
Discharge Orders:
Discharge Patient (As Directed); Ordered 03/27/24
Ordered By: Anabelle Liang
Discharge Date and Time
Discharge Date/Time: 03/27/24 16:02
Print Language: QATARI

Documented by User: Franck Brewer MD 03/28/24 13:59
Discharge Summary
Discharge Data
Date of Admission: 03/26/24
Date of Discharge: 03/28/24
Discharge Plan
-
Patient Disposition: Home (Routine Discharge)
Discharge Diagnosis/Procedures: Hyperkalemia
Condition: Good
Diet: As tolerated and Diabetic, Carb Controlled
Activity: No restrictions and As tolerated
Driving Restrictions: As prior to admission
Bathing Restrictions: None
Instructions: High Blood Pressure (DC), Controlling your blood pressure through lifestyle, Dealing with Low Blood Pressure from the Drugs You Take
Referrals:
Jenna Underwood DO [Family Provider] - in one to two weeks
Prescriptions:
Continued
sertraline 50 MG tablet
50 mg PO DAILY
Jardiance 10 MG tablet
10 mg PO DAILY
clopidogrel 75 MG tablet
75 mg PO DAILY Qty: 30 0RF
rosuvastatin 20 MG tablet
20 mg PO QPM Qty: 30 0RF
labetalol 200 mg tablet
200 mg PO BID
amlodipine 5 mg tablet
5 mg PO DAILY
metformin 1,000 mg tablet
1,000 mg PO BID
coenzyme Q10 [Co Q-10] 100 mg Capsule
100 mg PO QPM
cholecalciferol (vitamin D3) 50 mcg (2,000 unit) Tablet
50 mcg PO BID
turmeric 400 mg Capsule
400 mg PO DAILY
Discontinued
irbesartan 300 mg tablet
150 mg PO DAILY
Discharge Orders:
Discharge Patient (As Directed); Ordered 03/27/24
Ordered By: Anabelle Liang
Discharge Date and Time
Discharge Date/Time: 03/27/24 16:02
Print Language: QATARI
== END 2024-03-27 16:02 | disposition home or self-care (01) | DRG 641 ==
LOC: 4 EAST ACU 21:09
PROVIDERS: Physician Assistant; Student in an Organized Health Care Education/Training Program; ADMITTING PHYSICIAN Hospitalist; ATTENDING PHYSICIAN Family Medicine; EMERGENCY PHYSICIAN Emergency Medicine; FAMILY PHYSICIAN Family Medicine
DX: E87.5 Hyperkalemia (principal); G91.2 (Idiopathic) normal pressure hydrocephalus; I95.2 Hypotension due to drugs; I10 Essential (primary) hypertension; I65.23 Occlusion and stenosis of bilateral carotid arteries; E11.9 Type 2 diabetes mellitus without complications; D50.9 Iron deficiency anemia, unspecified; F32.A Depression, unspecified; T46.5X5A Adverse effect of other antihypertensive drugs, initial encounter; E78.5 Hyperlipidemia, unspecified; E55.9 Vitamin D deficiency, unspecified; F41.9 Anxiety disorder, unspecified; I44.0 Atrioventricular block, first degree; R41.89 Other symptoms and signs involving cognitive functions and awareness; Z79.02 Long term (current) use of antithrombotics/antiplatelets; Z79.84 Long term (current) use of oral hypoglycemic drugs; Z79.899 Other long term (current) drug therapy; Z86.73 Personal history of transient ischemic attack (TIA), and cerebral infarction without residual deficits
CPT/HCPCS: 80053; 82962; 84132; 85025; 93005; 96360; 99285

== ENCOUNTER 2025-02-25 20:46 | Inpatient (IN) | payer OTHER, SELFPAY ==
[2025-02-25 15:54] VITALS: BP 122/63
[2025-02-25 16:12] LABS: Hematocrit 35.1 % (37.0-47.0); Hemoglobin 10.9 g/dL (12.0-16.0); Mean Corp Hgb Conc. 31.1 g/dL (33.0-37.0); Mean Corpuscular Volume 95.1 fL (81.0-99.0); Nucleated Red Blood Cells % 0 %; Platelet Count 220 10^3/uL (130-400); Red Cell Dist. Width 15.5 % (11.5-14.5)
[2025-02-25 16:42] LABS: Albumin 4.3 g/dl (3.5-5.0); Blood Urea Nitrogen 41 mg/dl (7-17); Calcium 9.1 mg/dl (8.4-10.2); Carbon Dioxide 19 mmol/L (22-30); Chloride 106 mmol/L (98-107); Glucose 170 mg/dl (70-99); Lipase 182 U/L (23-300); Potassium 5.1 mmol/L (3.5-5.1); Sodium 137 mmol/L (135-145); Total Protein 7.1 g/dl (6.3-8.2); eGFR 23.44
[2025-02-25 16:49] LABS: ALT (SGPT) 892 U/L (0-35); AST (SGOT) 1069 U/L (14-36); Alkaline Phosphatase 1291 U/L (38-126)
[2025-02-25 17:43] VITALS: BMI 25.0
--- NOTE | 2025-02-25 17:53 | ED.GENMED ---
History of Present Illness
General
Chief Complaint: Fatigue
Time Seen by Provider: 02/25/25 17:27
Nursing documentation reviewed up to this point in time: agreed with
History of Present Illness
History of Present Illness:
89-year-old female brought to the ER by family for evaluation of jaundice, just noted by family today. Patient is pleasantly confused with her history of dementia. She offers no complaints or concerns. Daughters present at bedside reports that
she has not been eating as much as usual and has had some progressive weight loss over the last several months or so. No fevers. No cough or cold symptoms. No vomiting. No reported abdominal pain. No peripheral edema.
Past History
Past History
ED Past Medical History: HTN, Hypercholesterolemia, NIDDM, Psychiatric (anxiety) and Other (TIA)
ED Past Surgical History: Gynecological
Social History
Tobacco: Non-smoker
Alcohol: None
Drug: None
Personal: Single
Living: with family
Phy Exam
Physical Exam
Physical Exam:
Patient is awake, alert, elderly, appears in no acute distress, she is jaundiced, mucous membranes moist, heart regular rate and rhythm without murmurs or ectopy, lungs are clear to auscultation without wheezes rales or rhonchi, abdomen is soft and
nontender without guarding or rebound, extremities without edema, 2+ DP pulses present symmetric bilateral feet, GCS is 14 due to confusion, moving all extremities symmetrically without focal deficit no rash seen
Course
Orders/Labs/Results
Orders:
Orders
02/25/25
US Abdomen Limited Urgent
Comment:
Reason For Exam: RUQ, painless jaundice
02/25/25 Dinner
1800 calorie (15 carb) Diabetic
02/25/25 16:06
CMP [Comprehensive Metabolic Panel] Urgent
Complete Blood Count/With Diff Urgent
Lipase Urgent
02/25/25 17:44
Ammonia Urgent
Hepatitis A IgM Antibody Urgent
Hepatitis B Core Ab, IgM Urgent
Hepatitis B Surface Antibody Urgent
Hepatitis B Surface Antigen Urgent
Hepatitis C Antibody Urgent
PTT Urgent
Prothrombin Time Urgent
02/25/25 20:24
Admit/Transfer Patient As Directed
Co-Sign Provider:
Level of Care: Inpatient admission
Assign to:: Medical/Surgical
Physician / Group: Jefe
Diagnosis: Jaundice
Reason for Hospitalization: Jaundice
Expected length of stay greater than two midnights?: Yes
ELOS- Estimated Length of Stay in days: 2
I certify the patient meets the requirements for IP care: Yes
PRN Pain Medication Management As Directed
May give lesser potent ordered pain med per pt: Yes
preference::
Protocol:: Medication orders for pain may be administered in a
manner that supports deferring to patient preference
when the pt is:
- Requesting an ordered lesser potent pain medication.
Least to most potent pain medications are defined
as: acetaminophen < NSAID < tramadol < opioids
(morphine, oxycodone, hydromorphone).
- Requesting a lesser dose of the same medication IF
ORDERED.
- Requesting a less intrusive route of administration
if both routes are prescribed by the provider (PO <
IV).
02/25/25 20:25
Code Status As Directed
Resuscitation Status: Full Code
02/25/25 20:43
0.9% Sodium Chloride 500 ml [Nss] 500 ml IV BOLUS
02/25/25 21:35
0.9% Sodium Chloride 1000 ml [Nss] 1,000 ml IV 100 mls/hr
Acetaminophen [Tylenol] 650 mg PO Q4HPRN PRN
Bisacodyl [Dulcolax] 10 mg RECTAL [id number] PRN
Docusate W/Senna [Senokot-S] 1 tablet PO BIDPRN PRN
Ondansetron Injectable [Zofran] 4 mg IV Q6HPRN PRN
Polyethylene Glycol Powder [Miralax] 17 grams PO DAILYPRN PRN
02/25/25 21:35
GASTROINTESTINAL CONSULT Routine
Consulting Provider: Christopher Deng
Was physician already notified: Yes
MR Mrcp Without Routine
Comment:
Reason For Exam: cholestasis with cholelithiasis, eval shoshana obstruct
Recent pill cam endoscopy?: No
MRI Abdomen [MR Abdomen W/o & W Contrast] Routine
Comment:
Reason For Exam: liver/pancreatic mass
Recent pill cam endoscopy?: No
Activity As Directed
Activity Level: With Assistance
Bedside Glucose Monitoring As Directed
Frequency: AC&HS
Vital Signs As Directed
Frequency: Per unit guidelines
DX Deep Vein Thrombosis Video Routine
02/26/25 00:00
Heparin 5,000 units SC Q8
02/26/25 06:00
AFP Male/Tumor Marker IN AM
Basic Metabolic Panel IN AM
CA 19-9 [S] IN AM
CEA IN AM
Complete Blood Count/No Diff IN AM
LFT [Pyvgk-Doch-Dujjdxx] IN AM
Magnesium IN AM
02/26/25 07:30
Insulin Aspart Corrective Low [Novolog Flexpen-Low Resistance] See Protocol SC AC
02/26/25 08:00
Amlodipine [Norvasc] 5 mg PO DAILY
Ascorbic Acid [Vitamin C] 1,000 mg PO DAILY
Cholecalciferol (Vitamin D3) [VITAMIN D3 (cholecalciferol)] 50 mcg PO BID
Clopidogrel Bisulfate [Plavix] 75 mg PO DAILY
Ferrous Sulfate [Feosol] 325 mg PO DAILY
Labetalol [Trandate] 200 mg PO BID
Sertraline HCl [Zoloft] 50 mg PO DAILY
02/26/25 18:00
Rosuvastatin Calcium [Crestor] 20 mg PO QPM
Abnormal Lab Results
02/25/25 02/25/25
16:06 17:44
RBC 3.69 L 10^6/uL
(4.20-5.40)
Hgb 10.9 L g/dL
(12.0-16.0)
Hct 35.1 L %
(37.0-47.0)
MCHC 31.1 L g/dL
(33.0-37.0)
RDW 15.5 H %
(11.5-14.5)
Abs Immat Gran (auto) 0.1 H 10^3/uL
(0-0.05)
Absolute Lymphs (auto) 1.1 L 10^3/uL
(1.2-3.4)
Immature Gran % 0.6 H %
(0-0.5)
Neutrophils % 76.9 H %
(42.2-75.2)
Lymphocytes % 14.4 L %
(20.5-51.1)
PT 15.5 H Sec
(11.4-14.6)
Carbon Dioxide 19 L mmol/L
(22-30)
BUN 41 H mg/dl
(7-17)
Creatinine 2.0 H mg/dL
(0.6-1.0)
Glucose 170 H mg/dl
(70-99)
Total Bilirubin 19.1 H* mg/dl
(0.2-1.3)
AST 1069 H* U/L
(14-36)
ALT 892 H* U/L
(0-35)
Alkaline Phosphatase 1291 H U/L
(38-126)
Ammonia < 9 L umol/L
(9-30)
02/25/25 16:06
02/25/25 16:06
Significantly elevated liver function studies, creatinine also elevated, no prior labs for comparison, white blood count reassuring, ammonia negative
Vital Signs
Initial and Last Documented VS:
Initial Vital Signs
Temp Pulse Resp BP Pulse Ox
97.5 F 60 18 122/63 97
02/25/25 15:54 02/25/25 15:54 02/25/25 15:54 02/25/25 15:54 02/25/25 15:54
Last Documented Vital Signs
Temp Pulse Resp BP Pulse Ox
97.8 F 68 16 142/58 100
02/25/25 21:43 02/25/25 21:43 02/25/25 21:43 02/25/25 21:43 02/25/25 21:43
MDM/Problems Addressed
Differential Diagnosis Includes:
Differential diagnosis considered but not limited to pancreatic cancer, choledocholithiasis, biliary outlet obstruction, acute otitis along with other etiologies considered
Chronic conditions affecting care:
Dementia
*Radiology
Radiology exam reviewed: radiology read reviewed (I reviewed ultrasound results)
*Pulse Oximetry
SaO2: 97
Oxygen Mode of Delivery: Room air
Patient hypoxic: no
*Critical Care Note
Total Time (30-74mins, 75-104mins- exclusive of procedures): Not Applicable
Update Note
Update Note:
Patient with stable parents throughout time in the emergency department. At time of initial evaluation I did discussed with family members need for admission for further workup of painless jaundice and concern for likely underlying malignancy.
Once ultrasound result available, I reviewed this information with on-call process developer, Dr Deng, who feels patient can be further evaluated here at this hospital and would not require transfer. I reviewed full patient presentation with
the hospitalist who accepts patient for admission.
ED Attending Note
-
Portions of this chart may have been created with voice recognition software.� Occasional wrong word or��sound alike� substitutions may have occurred due to the inherent limitations of voice recognition software.
Discharge Plan
Departure
Patient Disposition: Admit
Date of Disposition: 02/25/25
Time of Disposition: :25
Presentation/result/management discussed w/ accepting MD/DO: Hospitalist
Discharge Problem:
Painless jaundice, Cholelithiasis
Interventions
Interventions:
*Risk Screen - Suicide Last Done: 02/25/25 21:43
*General Assessment Last Done: 02/25/25 17:43
*Neglect/Abuse Screening Last Done: 02/25/25 15:54
*ED- Fall Risk Assessment Last Done: 02/25/25 19:14
*ED COVID-19 Vaccine History Last Done: 02/25/25 21:43
*Nursing Disposition Last Done: 02/25/25 21:27
Discharge Date and Time
Discharge Date/Time: 02/25/25 21:28
[2025-02-25 18:05] LABS: INR 1.20; PT 15.5 Sec (11.4-14.6)
[2025-02-25 18:06] LABS: APTT 29.3 Sec (23.4-35.0)
[2025-02-25 18:09] LABS: Ammonia < 9 umol/L (9-30)
[2025-02-25 18:49] LABS: Hepatitis B Surface Antigen Negative (Negative)
[2025-02-25 19:07] LABS: Hepatitis C Antibody Negative (Negative)
[2025-02-25 19:13] VITALS: BP 147/64
[2025-02-25 19:14] VITALS: BP 147/64
[2025-02-25 20:00] VITALS: BP 135/64
--- NOTE | 2025-02-25 20:15 | HPS.HSE ---
Family Physician
-
Family Physician: Jenna Underwood
Chief Complaint
-
Jaundiced
History of Present Illness
This is a 89-year-old female with past medical history of CVA, bilateral carotid artery stenosis, hypertension, dementia, normal pressure hydrocephalus, hyperlipidemia, diabetes, history of normal pressure hydrocephalus, presenting to the emergency
department by family for finding of jaundice.
Patient has some dementia but she denies any acute symptoms. She specifically denies any abdominal pain nausea or vomiting. She denies having any abdominal bloating or diarrhea. She has no history of liver disease. She denies alcohol use. She
is not taking any NSAIDs or acetaminophen. She denies any known history of gallbladder disease.
Going the emergency department patient was afebrile, blood pressure was 140/60 with a pulse of 80 and satting 98% on room air.
CBC was unremarkable. Electrolytes showed a potassium of 5.1, BUN was 41 and a creatinine of 2.0. Marked elevation in total bilirubin to 19, AST over 1000 and ALT 800 and alk phos over 1000. Lipase was negative.
Ultrasound of the abdomen revealing cholelithiasis with multiple shadowing gallstones and no sonographic Hernandez sign. No evidence of pericholecystic edema. There were central dilated intrahepatic ducts. n the bobbi hepatis region, a portion of
the common hepatic duct or superior common bile duct is visualized, measuring up to 5 mm, within normal range of less than 9 mm. The inferior common bile duct is unable to be visualized.
The pancreas, upper abdominal IVC, and the upper abdominal aorta are unable to be visualized.
Medical History
Past Medical History
Past Medical History: Reports Other (CVA, bilateral internal carotid artery stenosis, possible normal pressure hydrocephalus, hypertension, diabetes, cognitive impairment, hyperlipidemia, vitamin D deficiency, iron deficiency,)
Past Surgical History: Reports Gynocological
Social History
Tobacco: Non-smoker
Alcohol: None
Drug: None
Family History
Family History: Not pertinent
Allergies / Home Medications
Allergies reflects when Allergies were last updated in [facility].
Home Medications with original date entered in [facility]
Allergy/Medication List:
Allergies
Allergy/AdvReac Type Severity Reaction Status Date / Time
Sulfa (Sulfonamide Allergy Unknown Verified 03/26/24 16:28
Antibiotics)
Home Medications
empagliflozin 10 mg tablet (Jardiance) 10 mg PO DAILY 08/14/19
sertraline 50 mg tablet 50 mg PO DAILY 08/14/19
clopidogrel 75 mg tablet 75 mg PO DAILY #30 tabs 08/17/19
rosuvastatin 20 mg tablet 20 mg PO QPM #30 tabs 08/17/19
amlodipine 5 mg tablet 5 mg PO DAILY 03/26/24
cholecalciferol (vitamin D3) 50 mcg (2,000 unit) tablet 50 mcg PO BID 03/26/24
coenzyme Q10 100 mg capsule (Co Q-10) 100 mg PO QPM 03/26/24
irbesartan 300 mg tablet 150 mg PO DAILY 03/26/24
labetalol 200 mg tablet 200 mg PO BID 03/26/24
metformin 1,000 mg tablet 1,000 mg PO BID 03/26/24
turmeric 400 mg capsule 400 mg PO DAILY 03/26/24
Review of Systems
-
Constitutional: Reports No Symptoms
EENT: Reports No Symptoms
Respiratory: Reports No Symptoms
Cardiac: Reports No Symptoms
Abdomen/GI: Reports No Symptoms
: Reports No Symptoms
Musculoskeletal: Reports No Symptoms
Skin: Reports No Symptoms
Neurological: Reports No Symptoms
Endocrine: Reports No Symptoms
Hematologic/Lymphatic: Reports No Symptoms
Psych: Reports No Symptoms
Physical Exam
Vital Signs
Vital Signs
Temp Pulse Resp BP Pulse Ox
97.5 F 63 18 147/64 99
02/25/25 15:54 02/25/25 19:14 02/25/25 19:14 02/25/25 19:14 02/25/25 19:14
Physical Exam
General: Well Developed, Well Nourished and No Apparent Distress
HEENT: NormoCephalic, Moist mucous membranes and Atraumatic; No Anicteric
Respiratory: Clear
Cardiac: S1/S2 and Regular Rhythm; No Murmur or Rub
GI: Soft, Non Tender, Non Distended and Normal Bowel Sounds; No Organomegaly
Rectal: Deferred by Provider
Musculoskeletal: No Clubbing, No Cyanosis and No Edema
Skin: Jaundice; No Rash
Neuro: Nonfocal/grossly intact
Laboratory Results
-
02/25/25 16:06
02/25/25 16:06
Laboratory Results
PT 15.5 Sec (11.4-14.6) H 02/25/25 17:44
INR 1.20 02/25/25 17:44
APTT 29.3 Sec (23.4-35.0) 02/25/25 17:44
Total Bilirubin 19.1 mg/dl (0.2-1.3) H* 02/25/25 16:06
AST 1069 U/L (14-36) H* 02/25/25 16:06
ALT 892 U/L (0-35) H* 02/25/25 16:06
Alkaline Phosphatase 1291 U/L (38-126) H 02/25/25 16:06
Lipase 182 U/L (23-300) 02/25/25 16:06
Data Reviewed
-
Ultrasound: Image Personally Visualized and interpreted
Lab Data: Labs Reviewed by me
Old Records: Reviewed
Impression/Plan
-
IMPRESSION:
89-year-old with new onset painless jaundice, lethargy and PETER. Found to have markedly elevated total bilirubin and LFTs consistent with a cholestatic pattern. There is normal lipase. She has cholelithiasis and centrally dilated bile ducts but no
obvious stone within the bile duct. Concern is for mass that he had of the pancreas but the pancreas could not be well-visualized on the ultrasound. She is not having any abdominal pain nausea or vomiting at this time.
PLAN:
1. Cholestasis concerning for pancreatic/liver mass/gall bladder mass. Acute hep panel negative.
- admit to med/surg
- diet as tolerated
- mri abd w/ w/o contrast
- mrcp
- check tumor markers afp, CA19-9 and CEA
- GI consultation
2. PETER - Suspect pre-renal azotemia
- IV fluids with NS at 100 ml/hr for now
- avoid contrast for now
- hold jardiance
3. DM II
- hold metformin
- insulin sliding scale
4. HTN
- continue labetolol and amlodipine
5. CVA
- continue plavix and statin
DVT PPX - heparin s/q
Code status - Full Code, pending w/u and family bringing any advance directives per d/w daughters.
[2025-02-25] MEDS: NSS 500 IV (20:55)
[2025-02-25 21:00] VITALS: BP 147/57
[2025-02-25 21:42] VITALS: BMI 24.1
[2025-02-25 21:43] VITALS: BP 142/58; BMI 24.1
[2025-02-25 21:49] LABS: Glucose - Point of Care 127 mg/dl (70-99)
[2025-02-25] MEDS: NSS 1000 IV (22:08)
[2025-02-26] MEDS: HEPARIN 5000 UNITS SC ×4 (00:51→22:34)
--- NOTE | 2025-02-26 01:37 | PTCARENOTE ---
Patient arrived from ED. AAO x 4 but patient is forgetful due to baseline cognitive impairment. Daughters at the bedside. VSS, on room air. Patient denies pain. OOB x 1 assist with straight cane. Skin check completed with second RN. Skin color is
icteric, including sclera. No open wounds or notable pressure injuries. Patient oriented to room. Bed alarm is on. Bed in lowest position. Call flores and personal belongings within reach.
[2025-02-26] MEDS: NSS 1000 IV ×2 (05:46→20:46)
[2025-02-26 07:34] VITALS: BP 138/60
[2025-02-26] MEDS: FEOSOL 325 MG PO (07:55)
[2025-02-26] MEDS: PLAVIX 75 MG PO (07:55)
[2025-02-26] MEDS: VITAMIN C 1000 MG PO (07:55)
[2025-02-26] MEDS: ZOLOFT 50 MG PO (07:55)
[2025-02-26] MEDS: VITAMIN D3 (cholecalciferol) 50 MCG PO ×2 (07:55→20:47)
[2025-02-26] MEDS: TRANDATE 200 MG PO ×2 (08:03→22:33)
[2025-02-26] MEDS: NORVASC 5 MG PO (08:03)
[2025-02-26 08:15] LABS: Glucose - Point of Care 115 mg/dl (70-99)
[2025-02-26] MEDS: NOVOLOG FLEXPEN-LOW RESISTANCE SC ×2 (09:15→13:01)
[2025-02-26 10:24] LABS: Hematocrit 32.5 % (37.0-47.0); Hemoglobin 10.5 g/dL (12.0-16.0); Mean Corp Hgb Conc. 32.3 g/dL (33.0-37.0); Mean Corpuscular Volume 94.2 fL (81.0-99.0); Platelet Count 244 10^3/uL (130-400); Red Cell Dist. Width 15.4 % (11.5-14.5)
[2025-02-26 10:57] LABS: Albumin 3.9 g/dl (3.5-5.0); Blood Urea Nitrogen 36 mg/dl (7-17); Calcium 9.2 mg/dl (8.4-10.2); Carbon Dioxide 18 mmol/L (22-30); Chloride 110 mmol/L (98-107); Estimated Creatinine Clearance 18 ml/min; Glucose 173 mg/dl (70-99); Magnesium 1.8 mg/dl (1.6-2.3); Potassium 4.3 mmol/L (3.5-5.1); Sodium 141 mmol/L (135-145); Total Protein 6.6 g/dl (6.3-8.2); eGFR 30.64
[2025-02-26 11:22] LABS: Glucose - Point of Care 166 mg/dl (70-99)
[2025-02-26 11:22] LABS: CEA 5.78 ng/ml
[2025-02-26 11:27] LABS: ALT (SGPT) 804 U/L (0-35); AST (SGOT) 986 U/L (14-36); Alkaline Phosphatase 1322 U/L (38-126)
--- NOTE | 2025-02-26 11:48 | W.PN.HOSP.TC ---
Today's Communication/Plan
-
MRCP
Assessment / Plan
Assessment / Plan
Physical exam:
General: Appears chronically ill. No Apparent Distress and nontoxic appearance.
HEENT: Icterus present. Normocephalic, Atraumatic and Moist Mucous Membranes
Respiratory: Clear to Auscultation; Negative Wheezes, Rales or Rhonchi
Cardiac: Regular Rhythm and S1/S2
GI: Soft, Nontender and Nondistended
Musculoskeletal: No Clubbing, No Cyanosis and No Edema
Neuro: Awake, Alert and Disoriented, no neurological deficit
Skin: Deeply jaundice and generalized
Psych: Calm
A/P:
Painless jaundice:
Suspicion for malignancy
Total bilirubin of 20
Plan for MRCP
Tumor markers pending, only CEA antigen back 5.78
GI consult appreciated-possible ERCP/EUS depending on results
GI is okay with diet and holding Plavix
Discussed at length with both daughters at bedside today and discussed different scenarios and possibilities and they are prepared to making some decisions moving forward depending on current workup.
PETER:
Continue IV fluid
Avoid nephrotoxic
Check kidney ultrasound
Monitor renal function closely
Asymptomatic cholelithiasis:
Reviewed ultrasound results
Hold on antibiotic since no signs of cholecystitis or cholangitis
Anemia:
Check basic anemia workup including iron substrate, B12 and folate
On oral iron supplementation
Continue to monitor hemoglobin
CVA:
Antiplatelet on hold due to possible upcoming procedure
Will hold statin in the setting of elevated LFTs
Hypertension:
Continue amlodipine 5 mg p.o. daily, labetalol 200 mg twice a day
Monitor blood pressure and adjust medications accordingly
Hyperlipidemia:
Hold statin in the setting of elevated LFTs
Peripheral vascular disease:
Antiplatelet on hold due to possible upcoming procedure
Will hold statin in the setting of elevated LFTs
Dementia:
Monitor mental status and behavior closely
Depression:
On sertraline 50 mg p.o. daily
DVT prophylaxis:
Heparin SQ
CODE STATUS:
Full code
Total time spent on today's encounter was 52 minutes which included time spent in counseling the patient/family regarding diagnosis and treatment plan as listed above, goals of care, and symptom management. Case was discussed with nursing staff,
specialists, and care coordinators/case management. All labs and imaging personally reviewed by me. Remainder the time spent in detailed review of previous records, lab data, imaging, and other medical provider documentation.
Anticipated Discharge: > 48 hours
Subjective/Interval History
-
Date of Service: February 26, 2025
Patient denies any abdominal pain nausea or vomiting. Afebrile. No chest pain or shortness of breath.
Objective Data
-
Labs:
Laboratory Results
02/26/25 02/26/25
10:04 11:00
WBC 7.0
Hgb 10.5 L
Hct 32.5 L
Plt Count 244
PT Pending
INR Pending
Sodium 141
Potassium 4.3
Chloride 110 H
Carbon Dioxide 18 L
BUN 36 H
Creatinine 1.6 H
Glucose 173 H
Calcium 9.2
Total Bilirubin 20.4 H*
AST 986 H*
ALT 804 H*
Alkaline Phosphatase 1322 H
Vital Signs:
Vital Signs
Temp Pulse Resp BP Pulse Ox
97.7 F 84 16 138/60 97
02/26/25 07:34 02/26/25 08:03 02/26/25 07:34 02/26/25 08:03 02/26/25 09:22
I&O
02/25/25 02/26/25 02/27/25
06:59 06:59 06:59
Intake Total 716 / 716
Balance 716 / 716
--- NOTE | 2025-02-26 12:45 | CON.GI ---
Consultation
-
Date/Time Consultation Requested: 02/25/2025, 21:00
Date/Time Consultation Performed: 02/26/2025, 12:45pm
Requesting Provider: Dr. Mayberry
Performing Provider: Dr. Deng
Reason for Consultation: elevated bili
Medical History
Chief Complaint / HPI
Chief Complaint: jaundice
History of Present Illness:
89 yo F pmh as below presenting with painless jaundice. Noticed by family pt with dementia. No pruritus, abd pain, n/v, fevers/chills. Wt loss 10 lb over 4 years. No FH of panc ca, mom with biliary dz. Also found to have PETER.
Bili 19.1 repeat 20.4.
Cr 2 repeat 1.6.
Past Medical History
Past Medical History: CVA, HTN, NIDDM and Other (dementia, carotid artery stenosis, NPH)
Past Surgical History: Gynecological
Social History
Tobacco: Non-Smoker
Alcohol: None
Drug: None
Family History
Family History: Reviewed & Not Pertinent
Allergies / Home Medications
Allergy/AdvReac Type Severity Reaction Status Date / Time
Sulfa (Sulfonamide Allergy 'YEARS AGO' Verified 02/25/25 17:43
Antibiotics)
�Medication �Instructions �Recorded
empagliflozin 10 mg tablet 10 mg PO DAILY Diabetes 08/14/19
(Jardiance)
sertraline 50 mg tablet 50 mg PO DAILY Mental 08/14/19
Health/Anxiety
clopidogrel 75 mg tablet 75 mg PO DAILY #30 tabs 08/17/19
rosuvastatin 20 mg tablet 20 mg PO QPM #30 tabs 08/17/19
amlodipine 5 mg tablet 5 mg PO DAILY Blood Pressure 03/26/24
cholecalciferol (vitamin D3) 50 50 mcg PO BID Supplement 03/26/24
mcg (2,000 unit) tablet
coenzyme Q10 100 mg capsule (Co 100 mg PO QPM Supplement 03/26/24
Q-10)
labetalol 200 mg tablet 200 mg PO BID Blood Pressure 03/26/24
metformin 1,000 mg tablet 500 mg PO BID Diabetes 03/26/24
turmeric 400 mg capsule 400 mg PO DAILY Supplement 03/26/24
ascorbic acid (vitamin C) 1,000 mg 1,000 mg PO DAILY Supplement 02/25/25
tablet (Vitamin C)
ferrous sulfate 325 mg (65 mg 325 mg PO DAILY Supplement 02/25/25
iron) tablet
vitamin B complex 1 tab PO DAILY Supplement 02/25/25
Review of Systems
-
All other systems: A 12 pt ROS was Negative except as stated above in HPI
Vital Signs
Temp Pulse Resp BP Pulse Ox
97.7 F 84 16 138/60 97
02/26/25 07:34 02/26/25 08:03 02/26/25 07:34 02/26/25 08:03 02/26/25 09:22
Physical Exam
Exam
General: Other (deeply jaundiced)
HEENT: Other (icteric sclera)
Respiratory: Clear
Cardiac: S1/S2
GI: Non Tender and Non Distended
Musculoskeletal: No Clubbing
Skin: Warm
Neuro: AO x 3
Hematologic/Lymphatic: No Lymphadenopathy
Psych: Calm
Results
WBC 7.0 10^3/uL (4.8-10.8) 02/26/25 10:04
Hgb 10.5 g/dL (12.0-16.0) L 02/26/25 10:04
Hct 32.5 % (37.0-47.0) L 02/26/25 10:04
MCV 94.2 fL (81.0-99.0) 02/26/25 10:04
Plt Count 244 10^3/uL (130-400) 02/26/25 10:04
Absolute Neuts (auto) 6.0 10^3/uL (1.4-6.5) 02/25/25 16:06
PT 15.5 Sec (11.4-14.6) H 02/25/25 17:44
INR 1.20 02/25/25 17:44
APTT 29.3 Sec (23.4-35.0) 02/25/25 17:44
Sodium 141 mmol/L (135-145) 02/26/25 10:04
Potassium 4.3 mmol/L (3.5-5.1) 02/26/25 10:04
Chloride 110 mmol/L (98-107) H 02/26/25 10:04
Carbon Dioxide 18 mmol/L (22-30) L 02/26/25 10:04
BUN 36 mg/dl (7-17) H 02/26/25 10:04
Creatinine 1.6 mg/dL (0.6-1.0) H 02/26/25 10:04
Calcium 9.2 mg/dl (8.4-10.2) 02/26/25 10:04
Total Bilirubin 20.4 mg/dl (0.2-1.3) H* 02/26/25 10:04
AST 986 U/L (14-36) H* 02/26/25 10:04
ALT 804 U/L (0-35) H* 02/26/25 10:04
Alkaline Phosphatase 1322 U/L (38-126) H 02/26/25 10:04
Lipase 182 U/L (23-300) 02/25/25 16:06
Hepatitis A IgM Ab Negative (Negative) 02/25/25 17:44
Hep Bs Antibody Negative 02/25/25 17:44
Hep B Core IgM Ab Negative (Negative) 02/25/25 17:44
Hepatitis C Antibody Negative (Negative) 02/25/25 17:44
Diagnostic Image Results:
Prior GI Procedures:
EGD:
Colonoscopy:
Assessment / Plan
-
89 yo F here with painless jaundice and PETER.
Suspect pancreatic cancer, MRI pending.
Trend bili.
Hold plavix for likely intervention - she did get this AM. CVA in 2020.
Discussed EUS/ERCP with pt and family in detail at bedside - r/a/b discussed with pt and family inc but not limited to bleeding, infection, perforation, pancreatitis. Even if treatment is NOT pursued, stenting would be palliative. Pt with dementia
family will need to consent. We do not have adv endo this week but we can either set up a round trip or outpatient procedure for pt next week at [facility] (family no preference).
Tumor markers ordered.
OK for diet.
PETER per primary team.
-
-
Thank you for consultation and allowing me to participate in the patient's care. Please call the publications designer GI physician during the after hours with any questions or concerns.
[2025-02-26 13:02] LABS: INR 1.30; PT 16.4 Sec (11.4-14.6)
[2025-02-26 16:00] VITALS: BP 166/65
[2025-02-26 17:09] LABS: Glucose - Point of Care 165 mg/dl (70-99)
[2025-02-26] MEDS: NOVOLOG FLEXPEN-LOW RESISTANCE 1 UNITS SC (17:12)
[2025-02-26 21:20] LABS: Glucose - Point of Care 176 mg/dl (70-99)
[2025-02-26 23:04] VITALS: BP 147/59
[2025-02-27 07:00] VITALS: BP 152/66
[2025-02-27 07:29] LABS: INR 1.29; PT 16.4 Sec (11.4-14.6)
[2025-02-27 07:32] LABS: Hematocrit 29.7 % (37.0-47.0); Hemoglobin 9.7 g/dL (12.0-16.0); Mean Corp Hgb Conc. 32.7 g/dL (33.0-37.0); Mean Corpuscular Volume 92.5 fL (81.0-99.0); Platelet Count 248 10^3/uL (130-400); Red Cell Dist. Width 15.5 % (11.5-14.5); Reticulocyte Count 0.8 % (0.4-2.8)
[2025-02-27 07:45] LABS: Glucose - Point of Care 165 mg/dl (70-99)
[2025-02-27 07:56] LABS: Albumin 3.6 g/dl (3.5-5.0); Blood Urea Nitrogen 30 mg/dl (7-17); Calcium 8.8 mg/dl (8.4-10.2); Carbon Dioxide 19 mmol/L (22-30); Chloride 112 mmol/L (98-107); Estimated Creatinine Clearance 22 ml/min; Glucose 137 mg/dl (70-99); Iron 135 ug/dl (37-170); Potassium 3.9 mmol/L (3.5-5.1); Sodium 141 mmol/L (135-145); Total Protein 6.1 g/dl (6.3-8.2); eGFR 39.31
[2025-02-27 08:08] LABS: Total Iron Binding Capacity 160 ug/dl (265-497)
[2025-02-27] MEDS: NOVOLOG FLEXPEN-LOW RESISTANCE 1 UNITS SC (08:23)
[2025-02-27] MEDS: VITAMIN D3 (cholecalciferol) 50 MCG PO ×2 (08:24→20:17)
[2025-02-27] MEDS: VITAMIN C 1000 MG PO (08:24)
[2025-02-27] MEDS: TRANDATE 200 MG PO ×2 (08:24→20:18)
[2025-02-27] MEDS: ZOLOFT 50 MG PO (08:25)
[2025-02-27] MEDS: NORVASC 5 MG PO (08:25)
[2025-02-27] MEDS: FEOSOL 325 MG PO (08:25)
[2025-02-27] MEDS: HEPARIN 5000 UNITS SC ×3 (08:25→23:45)
--- NOTE | 2025-02-27 08:34 | W.PN.HOSP.TC ---
Addendum entered and electronically signed by Giorgio Quiroz MD 02/27/25 13:49:
Hospice discussed with family. Plan to discharge once hospice arrangements have been set up over the next 24 to 48 hours.
Original Note:
Today's Communication/Plan
-
Hospice consult. Discharge planning
Assessment / Plan
Assessment / Plan
Physical exam:
General: Appears chronically ill. No Apparent Distress and nontoxic appearance.
HEENT: Icterus present. Normocephalic, Atraumatic and Moist Mucous Membranes
Respiratory: Clear to Auscultation; Negative Wheezes, Rales or Rhonchi
Cardiac: Regular Rhythm and S1/S2
GI: Soft, Nontender and Nondistended
Musculoskeletal: No Clubbing, No Cyanosis and No Edema
Neuro: Awake, Alert and Disoriented, no neurological deficit
Skin: Deeply and generalized jaundice
Psych: Calm
A/P:
Painless jaundice:
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
Total bilirubin of 20
Reviewed MRCP results
Tumor markers pending, only CEA antigen back 5.78
GI consult appreciated-discussed with GI today. GI discussed with interventionalist and did not recommend to do ERCP since patient asymptomatic at the moment.
GI is okay for possible discharge after hospice arrangements.
Discussed at length with both daughters at bedside today and they are in agreement with hospice care. Hospice consulted.
PETER:
Continue IV fluid but can stop prior to discharge
Avoid nephrotoxic
Reviewed kidney ultrasound
Asymptomatic cholelithiasis:
Reviewed ultrasound results
Hold on antibiotic since no signs of cholecystitis or cholangitis
Anemia:
Checked basic anemia workup including iron substrate, B12 and folate and anemia of chronic disease evident
On oral iron supplementation
Continue to monitor hemoglobin
CVA:
Antiplatelet can be resumed since no procedures scheduled
Will hold statin in the setting of elevated LFTs
Hypertension:
Continue amlodipine 5 mg p.o. daily, labetalol 200 mg twice a day
Monitor blood pressure and adjust medications accordingly
Hyperlipidemia:
Hold statin in the setting of elevated LFTs
Peripheral vascular disease:
Antiplatelet will be restarted
Will hold statin in the setting of elevated LFTs
Dementia:
Monitor mental status and behavior closely
Depression:
On sertraline 50 mg p.o. daily
DVT prophylaxis:
Heparin SQ
CODE STATUS:
DNR-patient does have a living will and also family agrees with current status.
Time spent 38 minutes
Anticipated Discharge: Today
Subjective/Interval History
-
Date of Service: February 27, 2025
No new complaints today. No abdominal pain nausea or vomiting.
Objective Data
-
Labs:
Laboratory Results
02/27/25
06:22
WBC 5.6
Hgb 9.7 L
Hct 29.7 L
Plt Count 248
PT 16.4 H
INR 1.29
Sodium 141
Potassium 3.9
Chloride 112 H
Carbon Dioxide 19 L
BUN 30 H
Creatinine 1.3 H
Glucose 137 H
Calcium 8.8
Total Bilirubin 20.1 H*
AST Pending
ALT Pending
Alkaline Phosphatase Pending
Vital Signs:
Vital Signs
Temp Pulse Resp BP Pulse Ox
97.7 F 62 18 152/66 96
02/27/25 07:00 02/27/25 07:00 02/27/25 07:00 02/27/25 07:00 02/27/25 07:00
I&O
02/26/25 02/27/25 02/28/25
06:59 06:59 06:59
Intake Total 716 / 716 1420 / 1420
Output Total 300 / 300
Balance 716 / 716 1120 / 1120
[2025-02-27 08:39] LABS: ALT (SGPT) 755 U/L (0-35); AST (SGOT) 921 U/L (14-36); Alkaline Phosphatase 1371 U/L (38-126)
[2025-02-27 09:05] LABS: Folate > 20.0 ng/ml (2.76-20); Vitamin B12 > 1000 pg/ml (239-931)
[2025-02-27 09:19] LABS: Ferritin 1080.0 ng/ml (11.1-264.0)
[2025-02-27] MEDS: NSS 1000 IV ×2 (09:45→20:20)
[2025-02-27 11:48] LABS: Glucose - Point of Care 267 mg/dl (70-99)
[2025-02-27] MEDS: NOVOLOG FLEXPEN-LOW RESISTANCE 3 UNITS SC (12:20)
--- NOTE | 2025-02-27 12:21 | CM ---
CM reviewed chart, consult received for Hospice. Patient seen with two daughters, Jenna and Pamella. Per family, patient lives with daughter, Jenna, in a two level home, one step to enter. Patient has a cane, bench in tub, otherwise independent
with ambulation. Patient has had VN in past, denies SNF. Patient PCP Jenna Underwood, [facility], confirms prescription coverage. Patient denies insecurities at home. Family interested in home hospice, agreeable to referral to
Hospice, requesting Hospice call patients Christiana james ([phone]), TT to monotypist meteorologist liaison. CM will continue to follow for all discharge planning needs.
Plan; ref to Hospice
--- NOTE | 2025-02-27 13:15 | HOSPNOTE ---
Spoke with daughter Christiana via telephone - she is going to speak with her sisters to confirm that Hospice is how they want to proceed. She was unsure if there were any additional procedures that her mother was going to undergo before discharge.
Patient would go home to her daughter Keyanna's home. If they decide they want to admit to Hospice DME would need to be placed in the home prior to discharge. Hospice to follow-up tomorrow. CM aware
[2025-02-27] MEDS: PLAVIX 75 MG PO (13:25)
--- NOTE | 2025-02-27 13:59 | W.PN.GI.CBS2 ---
Today's Communication / Plan
-
hospice, gi signing off
Assessment / Plan
-
89 yo F here with painless jaundice and PETER.
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
I d/w Advanced Fellow Charles Owens today
No role for ERCP if patient asymptomatic if plan for hospice; will be very technically difficult to access the area and risks would outweigh benefits
Only recommend ERCP if pt symptomatic - reviewed with family to call us if she becomes pruritic Dr. Tellez can do the ERCP
Family would like to move forward with hospice reasonable given age and dementia.
Resume plavix.
D/w hospitalist
will sign off pls call with ?s
Subjective
Subjective
Date of Service: February 27, 2025
No events overnight
Objective
Data Reviewed
Laboratory Data:
Laboratory Results
02/27/25 06:22
02/27/25 06:22
Laboratory Results
PT 16.4 Sec (11.4-14.6) H 02/27/25 06:22
INR 1.29 02/27/25 06:22
APTT 29.3 Sec (23.4-35.0) 02/25/25 17:44
Magnesium 1.8 mg/dl (1.6-2.3) 02/26/25 10:04
Total Bilirubin 20.1 mg/dl (0.2-1.3) H* 02/27/25 06:22
AST 921 U/L (14-36) H* 02/27/25 06:22
ALT 755 U/L (0-35) H* 02/27/25 06:22
Alkaline Phosphatase 1371 U/L (38-126) H 02/27/25 06:22
Lipase 182 U/L (23-300) 02/25/25 16:06
Vital Signs and I&O:
Vital Signs
Temp Pulse Resp BP Pulse Ox
97.7 F 62 18 152/66 96
02/27/25 07:00 02/27/25 08:24 02/27/25 07:00 02/27/25 08:24 02/27/25 08:04
I&O
02/26/25 02/27/25 02/28/25
06:59 06:59 06:59
Intake Total 716 / 716 1420 / 1420
Output Total 300 / 300
Balance 716 / 716 1120 / 1120
Physical Exam
Physical Exam
HEENT: Other (icteric sclera, deeply jaundiced)
GI: Non Distended and Non Tender
[2025-02-27 15:00] VITALS: BP 157/65
[2025-02-27 16:56] LABS: Glucose - Point of Care 203 mg/dl (70-99)
[2025-02-27] MEDS: NOVOLOG FLEXPEN-LOW RESISTANCE 2 UNITS SC (17:14)
[2025-02-27 20:51] LABS: Glucose - Point of Care 188 mg/dl (70-99)
[2025-02-28 00:13] VITALS: BP 165/67
[2025-02-28 05:58] LABS: Hematocrit 26.8 % (37.0-47.0); Hemoglobin 8.8 g/dL (12.0-16.0); Mean Corp Hgb Conc. 32.8 g/dL (33.0-37.0); Mean Corpuscular Volume 92.1 fL (81.0-99.0); Platelet Count 247 10^3/uL (130-400); Red Cell Dist. Width 15.1 % (11.5-14.5)
[2025-02-28 06:27] LABS: ALT (SGPT) 681 U/L (0-35); AST (SGOT) 676 U/L (14-36); Albumin 3.2 g/dl (3.5-5.0); Blood Urea Nitrogen 26 mg/dl (7-17); Calcium 8.4 mg/dl (8.4-10.2); Carbon Dioxide 19 mmol/L (22-30); Chloride 113 mmol/L (98-107); Estimated Creatinine Clearance 29 ml/min; Glucose 174 mg/dl (70-99); Potassium 3.1 mmol/L (3.5-5.1); Sodium 139 mmol/L (135-145); Total Protein 5.7 g/dl (6.3-8.2); eGFR 53.85
[2025-02-28 06:36] LABS: Alkaline Phosphatase 1193 U/L (38-126)
[2025-02-28 08:03] LABS: Glucose - Point of Care 197 mg/dl (70-99)
[2025-02-28] MEDS: NOVOLOG FLEXPEN-LOW RESISTANCE 1 UNITS SC (08:17)
[2025-02-28] MEDS: HEPARIN 5000 UNITS SC (08:18)
[2025-02-28] MEDS: ZOLOFT 50 MG PO (08:20)
[2025-02-28] MEDS: FEOSOL 325 MG PO (08:21)
[2025-02-28] MEDS: PLAVIX 75 MG PO (08:21)
[2025-02-28] MEDS: TRANDATE 200 MG PO (08:21)
[2025-02-28] MEDS: NORVASC 5 MG PO (08:21)
[2025-02-28] MEDS: VITAMIN D3 (cholecalciferol) 50 MCG PO (08:24)
[2025-02-28] MEDS: VITAMIN C 1000 MG PO (08:25)
[2025-02-28] MEDS: NSS 1000 IV (08:30)
[2025-02-28 08:35] VITALS: BP 150/58
[2025-02-28] MEDS: KCL 270 MEQ IV (09:30)
--- NOTE | 2025-02-28 10:27 | HOSPNOTE ---
Spoke with daughters and they would like patient discharged today to home and sign onto hospice services. The family will be driving the patient home. No equipment is needed at this time. Attending aware of plan. Updated CM.
--- NOTE | 2025-02-28 11:14 | W.PN.HOSP.TC ---
Addendum entered and electronically signed by Natan Lea DO 03/01/25 10:10:
CDI: hypokalemia present
Original Note:
Today's Communication/Plan
-
Discharged to home hospice
Assessment / Plan
Assessment / Plan
Painless jaundice:
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
Total bilirubin of 20
Reviewed MRCP results
Tumor markers pending, only CEA antigen back 5.78
GI consult appreciated-discussed with GI today. GI discussed with interventionalist and did not recommend to do ERCP since patient asymptomatic at the moment.
GI is okay for possible discharge after hospice arrangements.
Discussed at length with both daughters at bedside today and they are in agreement with hospice care. Hospice consulted.
PETER:
Continue IV fluid but can stop prior to discharge
Avoid nephrotoxic
Reviewed kidney ultrasound
Asymptomatic cholelithiasis:
Reviewed ultrasound results
Hold on antibiotic since no signs of cholecystitis or cholangitis
Anemia:
Checked basic anemia workup including iron substrate, B12 and folate and anemia of chronic disease evident
On oral iron supplementation
Continue to monitor hemoglobin
CVA:
Antiplatelet can be resumed since no procedures scheduled
Will hold statin in the setting of elevated LFTs
Hypertension:
Continue amlodipine 5 mg p.o. daily, labetalol 200 mg twice a day
Monitor blood pressure and adjust medications accordingly
Hyperlipidemia:
Hold statin in the setting of elevated LFTs
Peripheral vascular disease:
Antiplatelet will be restarted
Will hold statin in the setting of elevated LFTs
Dementia:
Monitor mental status and behavior closely
Depression:
On sertraline 50 mg p.o. daily
DVT prophylaxis:
Heparin SQ
CODE STATUS:
DNR-patient does have a living will and also family agrees with current status.
Anticipated Discharge: Today
Subjective/Interval History
-
Date of Service: February 28, 2025
Seen and examined at the bedside. No acute events overnight. AFVSS this morning.
LFTs stable. Patient without any complaints at this time
Plan for home hospice today
Objective Data
-
Labs:
Laboratory Results
02/28/25
05:19
WBC 5.7
Hgb 8.8 L
Hct 26.8 L
Plt Count 247
Sodium 139
Potassium 3.1 L
Chloride 113 H
Carbon Dioxide 19 L
BUN 26 H
Creatinine 1.0
Glucose 174 H
Calcium 8.4
Total Bilirubin 19.7 H*
AST 676 H*
ALT 681 H*
Alkaline Phosphatase 1193 H
Vital Signs:
Vital Signs
Temp Pulse Resp BP Pulse Ox
98.5 F 73 16 150/58 97
02/28/25 08:35 02/28/25 08:35 02/28/25 08:35 02/28/25 08:35 02/28/25 08:35
I&O
02/27/25 02/28/25 03/01/25
06:59 06:59 06:59
Intake Total 1420 / 1420 1860 / 1860
Output Total 300 / 300 400 / 400
Balance 1120 / 1120 1460 / 1460
Review of Systems
-
History Source: Patient
All other systems: Reviewed and negative
Physical Exam
-
General: Well Developed, Well Nourished and No Apparent Distress
HEENT: Normocephalic, Atraumatic, Moist Mucous Membranes and Other (Icteric sclera bilaterally)
Respiratory: Clear to Auscultation and Non Labored Respirations; Negative Accessory Resp Muscle Use
Cardiac: Regular Rhythm and S1/S2; Negative Murmur, Rub or Gallop
GI: Soft, Nontender, Nondistended and Normal Bowel Sounds
Musculoskeletal: No Clubbing, No Cyanosis and No Edema
Skin: Warm, Dry and Jaundice; Negative Rash
Neuro: AO x 3 and Nonfocal/Grossly Intact; Negative Tremors
Psych: Calm
--- NOTE | 2025-02-28 11:35 | CM ---
Chart reviewed. Per [facility]/ hospice, plan is for patient to d/c home and sign onto services. No equipment needed at this time. Daughter will transport patient home.
Met w/ patient and daughter bedside, agreeable to plan today
IMM verbally reviewed, copy provided, copy on chart
Plan: Home w/ Hospice
[2025-02-28 11:41] LABS: Glucose - Point of Care 239 mg/dl (70-99)
[2025-02-28] MEDS: NOVOLOG FLEXPEN-LOW RESISTANCE 2 UNITS SC (11:47)
[2025-02-28 13:14] VITALS: BP 134/59
--- NOTE | 2025-02-28 15:15 | W.DCSUMMARY ---
Discharge Summary
Discharge Data
Date of Admission: 02/25/25
Date of Discharge: 02/28/25
Total time spent discharging patient (in min): 35
-
Pending Results: No
Hospital Course
89-year-old female with bilateral carotid stenosis, hypertension, dyslipidemia, [place], vitamin D deficiency, mild dementia, H/O CVA that presented to the hospital with jaundice and scleral icterus. Initial abdominal ultrasound showed cholelithiasis
and multiple shadowing gallstones with negative sonographic Hernandez sign and no evidence of pericholecystic edema though it did demonstrate signs of central dilated intrahepatic ducts and dilation of the common hepatic duct and superior CBD.
Follow-up MRCP and MRI abdomen without contrast showed severe central intrahepatic duct dilation with narrowing at the junction of the left and right common hepatic ducts and joint common hepatic duct with superior aspect of the common bile duct.
MRCP demonstrated a focal area of signal abnormality and enhancement suspicious for an obstructing neoplasm such as bile duct carcinoma versus pancreatic carcinoma. Patient's family/power of assistant prosecuting attorney has decided against workup and elected for
hospice evaluation. Patient was discharged from hospital to home hospice on 02/28/2025. To be transition to comfort based medication regimen upon formal sign onto hospice
Discharge Plan
-
Patient Disposition: Home with Hospice
Discharge Diagnosis/Procedures: Obstructive jaundice
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
Condition: Fair
Diet: No restrictions
Activity: As tolerated
Driving Restrictions: No driving
Bathing Restrictions: None
Other Services: Hospice
Referrals:
Jenna Underwood DO [Family Provider, Family Practice]
Additional Discharge Medication Instructions: Medications to be adjusted by hospice service
Prescriptions:
Continued
sertraline 50 MG tablet
50 mg PO DAILY
clopidogrel 75 MG tablet
75 mg PO DAILY Qty: 30 0RF
labetalol 200 mg tablet
200 mg PO BID
amlodipine 5 mg tablet
5 mg PO DAILY
coenzyme Q10 [Co Q-10] 100 mg Capsule
100 mg PO QPM
cholecalciferol (vitamin D3) 50 mcg (2,000 unit) Tablet
50 mcg PO BID
turmeric 400 mg Capsule
400 mg PO DAILY
ascorbic acid (vitamin C) [Vitamin C] 1,000 mg Tablet
1,000 mg PO DAILY
ferrous sulfate 325 mg (65 mg iron) Tablet
325 mg PO DAILY
vitamin B complex Tablet
1 tab PO DAILY
Discontinued
Jardiance 10 MG tablet
10 mg PO DAILY
rosuvastatin 20 MG tablet
20 mg PO QPM Qty: 30 0RF
metformin 1,000 mg tablet
500 mg PO BID
Discharge Orders:
Discharge Patient (As Directed); Ordered 02/28/25
Ordered By: Natan Lea
Discharge Date and Time
Discharge Date/Time: 02/28/25 14:47
Print Language: MARSHALLESE
[2025-02-28 17:27] LABS: CA 19-9 483 U/mL (<=35)
[2025-02-28 18:57] LABS: AFP Male/Tumor Marker 3.51 ng/ml
--- NOTE | 2025-03-01 08:50 | PN.CDI ---
CDI
- -
CDI:
Physician Documentation Request
Admit Date: 02/25/25 20:46
Dear Doctor Venu,
Patient admitted for jaundice,
8/ Potassium level: 3.1
8/4 Potassium chloride 40 meq IV administered
Based on the above, could you clarify in the progress notes, the appropriate diagnosis, if significant, that supports the above abnormalities and additional evaluation, monitoring and/or treatment rendered:
Hypokalemia
Abnormal lab value insignificant
Other
Use of terms such as suspected, likely, concern for, or probable (associated with a specific diagnosis that is being evaluated, monitored, or treated as if it exists) are acceptable and can be coded in the inpatient setting, when documented at the
time of discharge.
Thank you,
Rhianna Tyler RN, BSN
CDI Specialist
Available via [place] text
Please use your independent medical judgment in providing your response.
== END 2025-02-28 14:47 | disposition hospice, home (50) | DRG 435 ==
LOC: 4 WEST ACU 20:46
PROVIDERS: Emergency Medicine; Hospitalist; ADMITTING PHYSICIAN Internal Medicine; ATTENDING PHYSICIAN Internal Medicine; CONSULT PHYSICIAN Internal Medicine Gastroenterology; EMERGENCY PHYSICIAN Emergency Medicine; FAMILY PHYSICIAN Family Medicine
DX: C24.9 Malignant neoplasm of biliary tract, unspecified (principal); K83.1 Obstruction of bile duct; F03.A3 Unspecified dementia, mild, with mood disturbance; F03.A4 Unspecified dementia, mild, with anxiety; N17.9 Acute kidney failure, unspecified; Z66 Do not resuscitate; Z51.5 Encounter for palliative care; I10 Essential (primary) hypertension; E55.9 Vitamin D deficiency, unspecified; E78.00 Pure hypercholesterolemia, unspecified; I65.23 Occlusion and stenosis of bilateral carotid arteries; F32.A Depression, unspecified; E87.6 Hypokalemia; D50.9 Iron deficiency anemia, unspecified; E11.51 Type 2 diabetes mellitus with diabetic peripheral angiopathy without gangrene; K80.20 Calculus of gallbladder without cholecystitis without obstruction; Z79.02 Long term (current) use of antithrombotics/antiplatelets; Z79.84 Long term (current) use of oral hypoglycemic drugs; Z79.899 Other long term (current) drug therapy; Z86.73 Personal history of transient ischemic attack (TIA), and cerebral infarction without residual deficits; Z88.2 Allergy status to sulfonamides
CPT/HCPCS: 74183; 76705; 76775; 80053; 82105; 82140; 82248; 82378; 82607; 82728; 82746; 82962; 83540; 83550; 83690; 83735; 85025; 85027; 85045; 85610; 85730; 86301; 86705; 86706; 86709; 86803; 87340; 96360; 99284; A9575